=== PATIENT | female | born 2000 | race African-American/Black ===

== ENCOUNTER 2021-03-17 08:44 | Emergency (ER) | payer MEDICAID ==
[~2021-03-17] VITALS: Ht 167.6 cm; Wt 80.0 kg
[~2021-03-17 08:44] MED LIST: ASPI-785; GABAPENTIN
[2021-03-17] MEDS ORDERED: KETOROLAC 15MG/ML VIAL IV ONE (09:30)
[2021-03-17] MEDS ORDERED: MORPHINE SULFATE 4 MG/ML CPJ (NOT FOR IM USE) IV ONE ×3 (09:30→14:15)
[2021-03-17 09:52] LABS: BASOPHILS % 0.8 % (0.0-2.0); EOSINOPHILS % 1.3 % (0.0-5.0); HEMATOCRIT. 22.8 % (36.0-48.0); LYMPHOCYTES % 23.5 % (20.0-50.0); MEAN CORPUSCULAR HEMOGLOBIN 26.7 pg (28.0-32.0); MEAN CORPUSCULAR VOLUME 75.7 fL (81.0-99.0); MEAN PLATELET VOLUME 8.6 fl (7.4-10.4); MONOCYTES % 8.5 % (2.0-8.0); NEUTROPHILS % 65.9 % (40.0-76.0); PLATELET 403 x1000/uL (130-400); RED BLOOD CELL COUNT 3.01 mill/uL (4.2-5.4); RED CELL DISTRIBUTION WIDTH 19.4 % (11.6-14.6)
[2021-03-17 09:55] LABS: CHLORIDE 110 mEq/L (98-107)
[2021-03-17] MEDS ORDERED: MORPHINE SULFATE 2 MG/ML CPJ (NOT FOR IM USE) IV NR (15:00)
[2021-03-17 15:31] LABS: INR 1.1; PROTHROMBIN TIME 11.9 sec (9.6-11.0)
[2021-03-17 16:00] VITALS: BP 126/67
== END 2021-03-17 17:00 | disposition short-term general hospital (02) ==
LOC: ER 08:44
DX: D57.09 Hb-SS disease with crisis with other specified complication (principal); M79.18 Myalgia, other site; R07.89 Other chest pain; R11.2 Nausea with vomiting, unspecified; Z20.822 Contact with and (suspected) exposure to COVID-19
CPT/HCPCS: 36415; 71045; 80053; 83690; 84484; 85025; 85044; 85610; 85660; 86850; 86900; 86901; 87426; 93005; 96374; 96375; 96376; 99285; J1885; J2270

== ENCOUNTER 2021-04-22 07:54 | Inpatient (IN) | payer MEDICAID ==
[~2021-04-22] VITALS: Ht 167.6 cm; Wt 79.8 kg
[2021-04-22] MEDS ORDERED: SODIUM CHLORIDE 0.9% 1000ML BAG (SEPSIS BOLUS) IV ONE (10:30)
[2021-04-22 11:06] LABS: CHLORIDE 107 mEq/L (98-107)
[2021-04-22 11:07] LABS: BASOPHILS % 0.5 % (0.0-2.0); EOSINOPHILS % 1.2 % (0.0-5.0); HEMATOCRIT. 25.6 % (36.0-48.0); HEMOGLOBIN. 8.5 g/dL (12.0-16.0); LYMPHOCYTES % 16.3 % (20.0-50.0); MEAN CORPUSCULAR HEMOGLOBIN 24.9 pg (28.0-32.0); MEAN CORPUSCULAR VOLUME 74.7 fL (81.0-99.0); MEAN PLATELET VOLUME 8.1 fl (7.4-10.4); MONOCYTES % 9.6 % (2.0-8.0); NEUTROPHILS % 72.4 % (40.0-76.0); PLATELET 352 x1000/uL (130-400); RED BLOOD CELL COUNT 3.43 mill/uL (4.2-5.4); RED CELL DISTRIBUTION WIDTH 18.8 % (11.6-14.6)
[2021-04-22 11:10] LABS: ETHANOL BLOOD < 10 mg/dL; HCG SCREEN NEGATIVE; INR 1.1; PROTHROMBIN TIME 11.6 sec (9.6-11.0)
[2021-04-22 11:14] LABS: CREATINE KINASE 59 IU/L (26-192)
[2021-04-22] MEDS ORDERED: KETOROLAC 15MG/ML VIAL IV NR (11:30)
[2021-04-22] MEDS ORDERED: MORPHINE SULFATE 2 MG/ML CPJ (NOT FOR IM USE) IV NR (11:30)
[2021-04-22] MEDS ORDERED: MORPHINE SULFATE 2 MG/ML CPJ (NOT FOR IM USE) IV SCH (13:15)
[2021-04-22] MEDS ORDERED: MORPHINE SULFATE 4 MG/ML CPJ (NOT FOR IM USE) IV ONE (14:45)
[2021-04-22 18:48] LABS: CLARITY URINE CLEAR (CLEAR); COLOR URINE YELLOW (YELLOW); KETONES URINE NEGATIVE (NEGATIVE); LEUKOCYTE ESTERASE URINE NEGATIVE (NEGATIVE); NITRITE URINE NEGATIVE (NEGATIVE); OCCULT BLOOD URINE NEGATIVE (NEGATIVE); PROTEIN URINE NEGATIVE (NEGATIVE); SPECIFIC GRAVITY URINE 1.052 (1.005-1.030); UROBILINOGEN URINE 0.2 E.U./dL (0.2-1.0)
[2021-04-22 19:05] LABS: *AMPHETAMINES SCREEN URINE NEGATIVE (NEGATIVE); *BARBITURATES SCREEN URINE NEGATIVE (NEGATIVE); *BENZODIAZEPINES SCREEN URINE NEGATIVE (NEGATIVE); *COCAINE SCREEN URINE NEGATIVE (NEGATIVE); PHENCYCLIDINE URINE SCREEN NEGATIVE (NEGATIVE)
[2021-04-22 19:06] LABS: CANNABINOID URINE SCREEN NEGATIVE (NEGATIVE)
[2021-04-22 19:08] LABS: METHADONE URINE SCREEN NEGATIVE (NEGATIVE)
[2021-04-22 19:10] LABS: OPIATES URINE SCREEN PRESUMTIVE POSITIVE (NEGATIVE)
[2021-04-22 20:00] VITALS: BP 107/59
[2021-04-22] MEDS: SODIUM CHLORIDE 0.9% 1,000 ML IV SCH (20:47)
[2021-04-22] MEDS: MORPHINE SULFATE 2 MG/ML CPJ (NOT FOR IM USE) IV PRN (20:49)
[2021-04-22] MEDS: HYDROXYUREA 500MG CAPSULE PO SCH (21:21)
[2021-04-22 22:18] VITALS: BP 107/59
[2021-04-22] MEDS ORDERED: NALOXONE HCL 0.4MG/ML VIAL IV PRN (22:30)
[2021-04-23] VITALS: BP 110/61
[2021-04-23] MEDS: MORPHINE SULFATE 2 MG/ML CPJ (NOT FOR IM USE) IV PRN ×6 (00:42→23:25)
[2021-04-23 04:00] VITALS: BP 108/68
[2021-04-23 05:36] LABS: BASOPHILS % 0.7 % (0.0-2.0); EOSINOPHILS % 2.1 % (0.0-5.0); HEMATOCRIT. 22.4 % (36.0-48.0); HEMOGLOBIN. 7.5 g/dL (12.0-16.0); LYMPHOCYTES % 33.8 % (20.0-50.0); MEAN CORPUSCULAR VOLUME 77.6 fL (81.0-99.0); MEAN PLATELET VOLUME 8.6 fl (7.4-10.4); MONOCYTES % 9.5 % (2.0-8.0); NEUTROPHILS % 53.9 % (40.0-76.0); PLATELET 261 x1000/uL (130-400); RED BLOOD CELL COUNT 2.88 mill/uL (4.2-5.4); RED CELL DISTRIBUTION WIDTH 20.1 % (11.6-14.6)
[2021-04-23 05:54] LABS: CHLORIDE 112 mEq/L (98-107)
[2021-04-23] MEDS: SODIUM CHLORIDE 0.9% 1,000 ML IV SCH ×3 (06:06→23:23)
[2021-04-23 08:00] VITALS: BP 99/50
[2021-04-23] MEDS ORDERED: INFLUENZA VACCINE 05/PF 0.5 ML SYRINGE IM ONE (09:00)
[2021-04-23] MEDS ORDERED: PNEUMOCOCCAL 23-VAL P-SAC VAC 0.5 ML IM ONE (09:00)
[2021-04-23] MEDS: HYDROXYUREA 500MG CAPSULE PO SCH ×2 (09:04→16:53)
[2021-04-23] MEDS: HYDROCODONE/ACETAMINOPHEN 10/325MG TABLET PO PRN ×2 (09:05→16:53)
[2021-04-23] MEDS: FOLIC ACID 1MG TABLET PO SCH (09:05)
[2021-04-23] MEDS ORDERED: IOHEXOL-350 100 ML BOTTLE ONE (09:58)
[2021-04-23 12:00] VITALS: BP 109/59
[2021-04-23 16:30] VITALS: BP 110/61
[2021-04-23 20:00] VITALS: BP 102/60
[2021-04-24] VITALS (9 sets, daily range): BP systolic 104–112; BP diastolic 54–63
[2021-04-24] MEDS: MORPHINE SULFATE 2 MG/ML CPJ (NOT FOR IM USE) IV PRN ×4 (04:52→21:04)
[2021-04-24 06:07] LABS: BASOPHILS % 0.7 % (0.0-2.0); EOSINOPHILS % 2.8 % (0.0-5.0); HEMOGLOBIN. 7.3 g/dL (12.0-16.0); LYMPHOCYTES % 29.7 % (20.0-50.0); MEAN CORPUSCULAR HEMOGLOBIN 25.3 pg (28.0-32.0); MEAN CORPUSCULAR VOLUME 76.7 fL (81.0-99.0); MEAN PLATELET VOLUME 8.3 fl (7.4-10.4); MONOCYTES % 9.7 % (2.0-8.0); NEUTROPHILS % 57.1 % (40.0-76.0); PLATELET 305 x1000/uL (130-400); RED BLOOD CELL COUNT 2.87 mill/uL (4.2-5.4); RED CELL DISTRIBUTION WIDTH 18.9 % (11.6-14.6)
[2021-04-24 06:45] LABS: CHLORIDE 112 mEq/L (98-107)
[2021-04-24] MEDS: FOLIC ACID 1MG TABLET PO SCH (08:34)
[2021-04-24] MEDS: HYDROXYUREA 500MG CAPSULE PO SCH ×2 (08:34→18:37)
[2021-04-24] MEDS: HYDROCODONE/ACETAMINOPHEN 10/325MG TABLET PO PRN (08:34)
[2021-04-24] MEDS: SODIUM CHLORIDE 0.9% 1,000 ML IV SCH ×2 (11:17→21:05)
[2021-04-24 23:39] LABS: HEMATOCRIT 26.8 % (36.0-48.0); MEAN CORPUSCULAR HEMOGLOBIN 26.2 pg (28.0-32.0); MEAN CORPUSCULAR VOLUME 78.1 fL (81.0-99.0); PLATELET 261 x1000/uL (130-400); RED BLOOD CELL COUNT 3.43 mill/uL (4.2-5.4); RED CELL DISTRIBUTION WIDTH 18.6 % (11.6-14.6)
[2021-04-25 00:30] VITALS: BP 103/47
[2021-04-25] MEDS: HYDROCODONE/ACETAMINOPHEN 10/325MG TABLET PO PRN ×2 (01:11→08:06)
[2021-04-25 04:13] VITALS: BP 94/52
[2021-04-25 06:41] LABS: BASOPHILS % 1.4 % (0.0-2.0); EOSINOPHILS % 2.7 % (0.0-5.0); HEMATOCRIT. 25.2 % (36.0-48.0); HEMOGLOBIN. 8.5 g/dL (12.0-16.0); LYMPHOCYTES % 34.5 % (20.0-50.0); MEAN CORPUSCULAR HEMOGLOBIN 26.5 pg (28.0-32.0); MEAN CORPUSCULAR VOLUME 78.6 fL (81.0-99.0); MEAN PLATELET VOLUME 8.5 fl (7.4-10.4); MONOCYTES % 8.4 % (2.0-8.0); PLATELET 314 x1000/uL (130-400); RED CELL DISTRIBUTION WIDTH 18.3 % (11.6-14.6)
[2021-04-25 06:45] LABS: CHLORIDE 112 mEq/L (98-107)
[2021-04-25 08:00] VITALS: BP 93/48
[2021-04-25] MEDS: FOLIC ACID 1MG TABLET PO SCH (08:05)
[2021-04-25] MEDS: HYDROXYUREA 500MG CAPSULE PO SCH ×2 (08:06→17:00)
[2021-04-25 12:00] VITALS: BP 105/46
[2021-04-25] MEDS: MORPHINE SULFATE 2 MG/ML CPJ (NOT FOR IM USE) IV PRN ×2 (14:54→19:46)
[2021-04-25] MEDS: SODIUM CHLORIDE 0.9% 1,000 ML IV SCH ×2 (14:54→23:35)
[2021-04-25 16:00] VITALS: BP 107/47
[2021-04-25 20:00] VITALS: BP 114/65
[2021-04-25] MEDS ORDERED: ACETAMINOPHEN 325MG TABLET PO PRN (23:30)
[2021-04-26] VITALS: BP 94/42
[2021-04-26] MEDS: MORPHINE SULFATE 2 MG/ML CPJ (NOT FOR IM USE) IV PRN ×2 (01:10→08:31)
[2021-04-26 04:00] VITALS: BP 101/48
[2021-04-26] MEDS: HYDROCODONE/ACETAMINOPHEN 10/325MG TABLET PO PRN ×2 (04:29→12:43)
[2021-04-26 08:00] VITALS: BP 110/52
[2021-04-26] MEDS: FOLIC ACID 1MG TABLET PO SCH (08:30)
[2021-04-26] MEDS: HYDROXYUREA 500MG CAPSULE PO SCH (08:31)
[2021-04-26 09:32] LABS: BASOPHILS % 0.6 % (0.0-2.0); EOSINOPHILS % 3.7 % (0.0-5.0); HEMATOCRIT. 24.9 % (36.0-48.0); HEMOGLOBIN. 8.2 g/dL (12.0-16.0); LYMPHOCYTES % 31.9 % (20.0-50.0); MEAN CORPUSCULAR HEMOGLOBIN 25.9 pg (28.0-32.0); MEAN CORPUSCULAR VOLUME 78.3 fL (81.0-99.0); MEAN PLATELET VOLUME 8.9 fl (7.4-10.4); MONOCYTES % 8.3 % (2.0-8.0); NEUTROPHILS % 55.5 % (40.0-76.0); PLATELET 303 x1000/uL (130-400); RED BLOOD CELL COUNT 3.18 mill/uL (4.2-5.4); RED CELL DISTRIBUTION WIDTH 18.1 % (11.6-14.6)
[2021-04-26 09:39] LABS: CHLORIDE 110 mEq/L (98-107)
[2021-04-26 12:00] VITALS: BP 111/70
[2021-04-26] MEDS: SODIUM CHLORIDE 0.9% 1,000 ML IV SCH (12:27)
[2021-04-26] MEDS ORDERED: TRAM50TA3 MT (13:02)
[2021-04-26 14:03] VITALS: BP 111/70
== END 2021-04-26 14:50 | disposition home or self-care (01) | DRG 662 ==
LOC: ER 07:54 → 7EST 16:18 → EDBEDREQSVC 16:25 → EDBEDREQ 16:25 → ENRESERV 18:03
PROVIDERS: ADMIT Internal Medicine; ATTEND Internal Medicine
PROC: 30233N1 Transfusion of Nonautologous Red Blood Cells into Peripheral Vein, Percutaneous Approach (ICD-10-PCS; principal; 2021-04-24)
DX: D57.00 Hb-SS disease with crisis, unspecified (principal); R65.10 Systemic inflammatory response syndrome (SIRS) of non-infectious origin without acute organ dysfunction; R79.1 Abnormal coagulation profile; Z88.8 Allergy status to other drugs, medicaments and biological substances; Z79.82 Long term (current) use of aspirin; Z79.899 Other long term (current) drug therapy
CPT/HCPCS: 36415; 71045; 71275; 80048; 80053; 80305; 80320; 81003; 82550; 83605; 84145; 84484; 84703; 85025; 85027; 85044; 85379; 86850; 86900; 86920; 90686; 90732; 93005; 99285; C1893; J1885; J2270; J7030; J7040; P9016; Q9967; G0480

== ENCOUNTER 2021-05-24 07:46 | Inpatient (IN) | payer MEDICAID ==
[~2021-05-24] VITALS: Ht 167.6 cm; Wt 74.8 kg
[2021-05-24] MEDS ORDERED: KETOROLAC 30MG/ML VIAL IV STA (08:58)
[2021-05-24] MEDS ORDERED: ONDANSETRON 4MG ODT PO ONE (09:00)
[2021-05-24] MEDS ORDERED: SODIUM CHLORIDE 0.9% 1,000 ML IV ONE (09:00)
[2021-05-24] MEDS ORDERED: MORPHINE SULFATE 10 MG/ML CPJ IM ONE (09:00)
[2021-05-24 09:53] LABS: BASOPHILS % 0.5 % (0.0-2.0); EOSINOPHILS % 1.1 % (0.0-5.0); HEMATOCRIT. 23.2 % (36.0-48.0); HEMOGLOBIN. 7.7 g/dL (12.0-16.0); LYMPHOCYTES % 15.3 % (20.0-50.0); MEAN CORPUSCULAR HEMOGLOBIN 24.9 pg (28.0-32.0); MEAN CORPUSCULAR VOLUME 74.8 fL (81.0-99.0); MEAN PLATELET VOLUME 8.6 fl (7.4-10.4); MONOCYTES % 12.2 % (2.0-8.0); NEUTROPHILS % 70.9 % (40.0-76.0); PLATELET 295 x1000/uL (130-400); RED CELL DISTRIBUTION WIDTH 18.6 % (11.6-14.6)
[2021-05-24 09:57] LABS: CHLORIDE 111 mEq/L (98-107)
[2021-05-24 10:07] LABS: HCG SCREEN NEGATIVE
[2021-05-24 10:14] LABS: CLARITY URINE CLEAR (CLEAR); COLOR URINE YELLOW (YELLOW); KETONES URINE NEGATIVE (NEGATIVE); LEUKOCYTE ESTERASE URINE NEGATIVE (NEGATIVE); NITRITE URINE NEGATIVE (NEGATIVE); OCCULT BLOOD URINE TRACE (NEGATIVE); PH URINE 5.5 (4.5-8.0); PROTEIN URINE NEGATIVE (NEGATIVE); SPECIFIC GRAVITY URINE 1.013 (1.005-1.030)
[2021-05-24 10:30] LABS: CANNABINOID URINE SCREEN NEGATIVE (NEGATIVE); METHADONE URINE SCREEN NEGATIVE (NEGATIVE); OPIATES URINE SCREEN NEGATIVE (NEGATIVE)
[2021-05-24 10:31] LABS: *AMPHETAMINES SCREEN URINE NEGATIVE (NEGATIVE); PHENCYCLIDINE URINE SCREEN NEGATIVE (NEGATIVE)
[2021-05-24 10:33] LABS: *BARBITURATES SCREEN URINE NEGATIVE (NEGATIVE)
[2021-05-24 10:34] LABS: *BENZODIAZEPINES SCREEN URINE NEGATIVE (NEGATIVE); *COCAINE SCREEN URINE NEGATIVE (NEGATIVE)
[2021-05-24] MEDS ORDERED: ASPIRIN 81MG TABLET PO ONE (11:15)
[2021-05-24] MEDS ORDERED: DIPHENHYDRAMINE 50MG/ML VIAL IV PRN (12:00)
[2021-05-24] MEDS ORDERED: ONDANSETRON HCL 4MG/2ML INJ IV PRN (12:00)
[2021-05-24] MEDS ORDERED: GUAIFENESIN 200MG/10ML SUGAR FREE UDC PO PRN (12:00)
[2021-05-24] MEDS ORDERED: LORAZEPAM 2MG/ML CPJ IV PRN (12:00)
[2021-05-24] MEDS ORDERED: NA PHOS,M-B/NA PHOS,DI-BA ENEMA 118ML PR PRN (12:00)
[2021-05-24] MEDS ORDERED: CLONIDINE 0.1MG TABLET PO PRN (12:00)
[2021-05-24] MEDS ORDERED: ACETAMINOPHEN 325MG TABLET PO PRN (12:00)
[2021-05-24] MEDS ORDERED: IPRATROPIUM/ALBUTEROL 0.5-3(2.5)MG/3ML NEB NEB PRN (12:00)
[2021-05-24] MEDS ORDERED: MAGNESIUM/ALUMINUM HYDROXIDE/SIMETHICONE 30ML UDC PO PRN (12:00)
[2021-05-24] MEDS ORDERED: DOCUSATE SODIUM 100MG CAPSULE PO PRN (12:00)
[2021-05-24] MEDS ORDERED: NALOXONE HCL 0.4MG/ML VIAL IV PRN (12:15)
[2021-05-24] MEDS: SODIUM CHLORIDE 0.45% 1,000 ML IV SCH ×2 (12:26→19:53)
[2021-05-24] MEDS: HYDROCODONE/ACETAMINOPHEN 10/325MG TABLET PO PRN ×2 (13:02→18:22)
[2021-05-24 16:30] VITALS: BP 97/53
[2021-05-24 17:18] LABS: CHLORIDE 113 mEq/L (98-107)
[2021-05-24 17:26] VITALS: BP 97/53
[2021-05-24] MEDS ORDERED: FOLI0.4T6 MT (17:44)
[2021-05-24] MEDS ORDERED: HYDR500C18 PO (17:44)
[2021-05-24] MEDS ORDERED: VITA400T9 MT (17:44)
[2021-05-24] MEDS ORDERED: CHOL400D7 PO (17:44)
[2021-05-24 19:49] VITALS: BP 105/65
[2021-05-24] MEDS: MORPHINE SULFATE 2 MG/ML CPJ (NOT FOR IM USE) IV PRN ×2 (19:52→23:59)
[2021-05-24 23:54] VITALS: BP 105/60
[2021-05-25] VITALS (10 sets, daily range): BP systolic 103–116; BP diastolic 54–76
[2021-05-25] MEDS: SODIUM CHLORIDE 0.45% 1,000 ML IV SCH ×3 (03:18→21:03)
[2021-05-25] MEDS: MORPHINE SULFATE 2 MG/ML CPJ (NOT FOR IM USE) IV PRN ×4 (04:00→17:17)
[2021-05-25 07:34] LABS: CHLORIDE 111 mEq/L (98-107)
[2021-05-25 07:39] LABS: BASOPHILS % 0.6 % (0.0-2.0); EOSINOPHILS % 2.4 % (0.0-5.0); MEAN CORPUSCULAR VOLUME 75.1 fL (81.0-99.0); MEAN PLATELET VOLUME 9.1 fl (7.4-10.4); MONOCYTES % 9.6 % (2.0-8.0); NEUTROPHILS % 58.4 % (40.0-76.0); PLATELET 244 x1000/uL (130-400); RED BLOOD CELL COUNT 2.61 mill/uL (4.2-5.4); RED CELL DISTRIBUTION WIDTH 18.7 % (11.6-14.6)
[2021-05-25 07:42] LABS: LDL CHOLESTEROL 55 mg/dL (5-100)
[2021-05-25 07:44] LABS: HDL CHOLESTEROL 27 mg/dL (40-59)
[2021-05-25 07:51] LABS: HEMATOCRIT. 19.6 % (36.0-48.0); HEMOGLOBIN. 6.8 g/dL (12.0-16.0)
[2021-05-25 20:28] LABS: HEMATOCRIT 23.2 % (36.0-48.0)
[2021-05-25] MEDS ORDERED: MORPHINE SULFATE 2 MG/ML CPJ (NOT FOR IM USE) IV PRN (20:45)
[2021-05-25] MEDS: HYDROCODONE/ACETAMINOPHEN 10/325MG TABLET PO PRN (23:20)
[2021-05-26] MEDS: MORPHINE SULFATE 2 MG/ML CPJ (NOT FOR IM USE) IV PRN ×2 (01:38→05:17)
[2021-05-26] MEDS: HYDROCODONE/ACETAMINOPHEN 10/325MG TABLET PO PRN ×2 (03:05→08:48)
[2021-05-26] MEDS: SODIUM CHLORIDE 0.45% 1,000 ML IV SCH (05:00)
[2021-05-26 05:18] VITALS: BP 115/80
[2021-05-26 08:00] VITALS: BP 122/79
[2021-05-26 08:45] LABS: BASOPHILS % 0.7 % (0.0-2.0); EOSINOPHILS % 3.7 % (0.0-5.0); HEMATOCRIT. 24.6 % (36.0-48.0); HEMOGLOBIN. 8.3 g/dL (12.0-16.0); LYMPHOCYTES % 18.2 % (20.0-50.0); MEAN PLATELET VOLUME 8.4 fl (7.4-10.4); MONOCYTES % 10.1 % (2.0-8.0); NEUTROPHILS % 67.3 % (40.0-76.0); PLATELET 258 x1000/uL (130-400); RED BLOOD CELL COUNT 3.19 mill/uL (4.2-5.4); RED CELL DISTRIBUTION WIDTH 20.7 % (11.6-14.6)
[2021-05-26 08:57] LABS: CHLORIDE 109 mEq/L (98-107)
[2021-05-26 11:54] VITALS: BP 122/79
[2021-06-07] MEDS ORDERED: SENN1TAB35 PO (11:23)
[2021-06-07] MEDS ORDERED: POLY17PO3 PO (11:23)
[2021-06-07] MEDS ORDERED: HYDR-4001 PO (14:39)
== END 2021-05-26 12:50 | disposition home or self-care (01) | DRG 662 ==
LOC: ER 07:46 → EDBEDREQTM 10:15 → EDBEDREQ 10:15 → 8WST 11:27 → EDBEDREQTM 11:31 → EDBEDREQ 11:31 → ENRESERV 14:24
PROVIDERS: ADMIT Internal Medicine; ATTEND Internal Medicine
PROC: 05HY33Z Insertion of Infusion Device into Upper Vein, Percutaneous Approach (ICD-10-PCS; principal; 2021-05-24)
PROC: B54MZZA Ultrasonography of Right Upper Extremity Veins, Guidance (ICD-10-PCS; 2021-05-24)
PROC: 30233N1 Transfusion of Nonautologous Red Blood Cells into Peripheral Vein, Percutaneous Approach (ICD-10-PCS; 2021-05-25)
DX: D57.00 Hb-SS disease with crisis, unspecified (principal); R65.10 Systemic inflammatory response syndrome (SIRS) of non-infectious origin without acute organ dysfunction; E86.0 Dehydration; Z88.8 Allergy status to other drugs, medicaments and biological substances; Z79.82 Long term (current) use of aspirin; Z79.899 Other long term (current) drug therapy
CPT/HCPCS: 36415; 71045; 76937; 80048; 80053; 80061; 80305; 81003; 83880; 84484; 84703; 85014; 85018; 85025; 85044; 86850; 86900; 86920; 93005; 99291; C1725; J1885; J2270; J7030; J7040; P9016; Q0162

== ENCOUNTER 2021-06-04 11:25 | Inpatient (IN) | payer MEDICAID ==
[~2021-06-04] VITALS: Ht 167.6 cm; Wt 73.5 kg
[~2021-06-04 11:25] MED LIST changes: -ASPI-785; +CHOL400D7 PO; +FOLI0.4T6 MT; -GABAPENTIN; +HYDR500C18 PO; +VITA400T9 MT
[2021-06-04] MEDS ORDERED: SODIUM CHLORIDE 0.9% 1,000 ML IV ONE (12:15)
[2021-06-04] MEDS ORDERED: MORPHINE SULFATE 4 MG/ML CPJ (NOT FOR IM USE) IV ONE ×2 (12:45→15:30)
[2021-06-04] MEDS ORDERED: KETOROLAC 15MG/ML VIAL IV ONE (12:45)
[2021-06-04 13:11] LABS: HEMATOCRIT. 23.5 % (36.0-48.0); HEMOGLOBIN. 7.8 g/dL (12.0-16.0); MEAN CORPUSCULAR HEMOGLOBIN 25.4 pg (28.0-32.0); MEAN PLATELET VOLUME 8.5 fl (7.4-10.4); PLATELET 398 x1000/uL (130-400); RED BLOOD CELL COUNT 3.09 mill/uL (4.2-5.4); RED CELL DISTRIBUTION WIDTH 18.5 % (11.6-14.6)
[2021-06-04] MEDS: KETOROLAC 30MG/ML VIAL IV NR ×2 (13:13→15:32)
[2021-06-04 13:17] LABS: CHLORIDE 109 mEq/L (98-107)
[2021-06-04 13:24] LABS: ETHANOL BLOOD < 10 mg/dL
[2021-06-04 13:53] LABS: PLATELET ESTIMATE NORMAL
[2021-06-04] MEDS ORDERED: ACETAMINOPHEN 325MG TABLET PO PRN ×2 (17:45)
[2021-06-04] MEDS ORDERED: MORPHINE SULFATE 2 MG/ML CPJ (NOT FOR IM USE) IV PRN (17:45)
[2021-06-04] MEDS ORDERED: MAGNESIUM/ALUMINUM HYDROXIDE/SIMETHICONE 30ML UDC PO PRN (17:45)
[2021-06-04] MEDS: HYDROCODONE/ACETAMINOPHEN 5/325MG TABLET PO PRN (18:12)
[2021-06-04] MEDS: ONDANSETRON HCL 4MG/2ML INJ IV PRN (18:13)
[2021-06-04] MEDS: SODIUM CHLORIDE 0.9% 1,000 ML IV SCH (18:23)
[2021-06-04 19:26] LABS: CLARITY URINE CLEAR (CLEAR); COLOR URINE YELLOW (YELLOW); KETONES URINE NEGATIVE (NEGATIVE); LEUKOCYTE ESTERASE URINE NEGATIVE (NEGATIVE); NITRITE URINE NEGATIVE (NEGATIVE); OCCULT BLOOD URINE NEGATIVE (NEGATIVE); PH URINE 5.5 (4.5-8.0); PROTEIN URINE NEGATIVE (NEGATIVE); SPECIFIC GRAVITY URINE 1.015 (1.005-1.030)
[2021-06-04 19:46] LABS: BASOPHILS % 0.9 % (0.0-2.0); EOSINOPHILS % 1.6 % (0.0-5.0); HEMATOCRIT. 21.8 % (36.0-48.0); HEMOGLOBIN. 7.2 g/dL (12.0-16.0); LYMPHOCYTES % 42.9 % (20.0-50.0); MEAN CORPUSCULAR HEMOGLOBIN 25.2 pg (28.0-32.0); MEAN CORPUSCULAR VOLUME 76.4 fL (81.0-99.0); MEAN PLATELET VOLUME 8.4 fl (7.4-10.4); MONOCYTES % 7.9 % (2.0-8.0); NEUTROPHILS % 46.7 % (40.0-76.0); PLATELET 355 x1000/uL (130-400); RED BLOOD CELL COUNT 2.86 mill/uL (4.2-5.4); RED CELL DISTRIBUTION WIDTH 18.9 % (11.6-14.6)
[2021-06-04] MEDS: MORPHINE SULFATE 2 MG/ML CPJ (NOT FOR IM USE) IV PRN ×2 (20:35→23:17)
[2021-06-04] MEDS: ENOXAPARIN 40MG/0.4ML SYR SUBCUT SCH (21:15)
[2021-06-04] MEDS: SENNOSIDES/DOCUSATE SOD 8.6/50MG TABLET PO SCH (21:15)
[2021-06-04 23:52] LABS: BASOPHILS % 0.7 % (0.0-2.0); EOSINOPHILS % 1.8 % (0.0-5.0); HEMATOCRIT. 23.7 % (36.0-48.0); MEAN CORPUSCULAR HEMOGLOBIN 26.2 pg (28.0-32.0); MEAN CORPUSCULAR VOLUME 77.7 fL (81.0-99.0); MEAN PLATELET VOLUME 8.2 fl (7.4-10.4); MONOCYTES % 8.7 % (2.0-8.0); NEUTROPHILS % 41.8 % (40.0-76.0); PLATELET 351 x1000/uL (130-400); RED BLOOD CELL COUNT 3.05 mill/uL (4.2-5.4); RED CELL DISTRIBUTION WIDTH 19.7 % (11.6-14.6)
[2021-06-05] VITALS (9 sets, daily range): BP systolic 94–120; BP diastolic 48–73
[2021-06-05 00:05] LABS: INR 1.2; PROTHROMBIN TIME 12.3 sec (9.6-11.0)
[2021-06-05] MEDS: SODIUM CHLORIDE 0.9% 1,000 ML IV SCH ×5 (00:33→21:26)
[2021-06-05] MEDS: MORPHINE SULFATE 2 MG/ML CPJ (NOT FOR IM USE) IV PRN ×6 (01:57→20:34)
[2021-06-05 04:51] LABS: CHLORIDE 115 mEq/L (98-107)
[2021-06-05 04:53] LABS: BASOPHILS % 0.8 % (0.0-2.0); EOSINOPHILS % 1.8 % (0.0-5.0); HEMATOCRIT. 23.1 % (36.0-48.0); HEMOGLOBIN. 7.8 g/dL (12.0-16.0); MEAN CORPUSCULAR HEMOGLOBIN 26.3 pg (28.0-32.0); MEAN CORPUSCULAR VOLUME 77.8 fL (81.0-99.0); MEAN PLATELET VOLUME 8.4 fl (7.4-10.4); MONOCYTES % 8.9 % (2.0-8.0); NEUTROPHILS % 49.5 % (40.0-76.0); PLATELET 322 x1000/uL (130-400); RED BLOOD CELL COUNT 2.97 mill/uL (4.2-5.4); RED CELL DISTRIBUTION WIDTH 19.4 % (11.6-14.6)
[2021-06-05 04:56] LABS: PHOSPHORUS 3.5 mg/dL (2.5-4.9)
[2021-06-05] MEDS: HYDROCODONE/ACETAMINOPHEN 5/325MG TABLET PO PRN (06:53)
[2021-06-05] MEDS ORDERED: POLYETHYLENE GLYCOL 3350 (17GM) 1 DOSE PACK PO PRN (09:00)
[2021-06-05] MEDS: HYDROXYUREA 500MG CAPSULE PO SCH (09:00)
[2021-06-05] MEDS: SENNOSIDES/DOCUSATE SOD 8.6/50MG TABLET PO SCH ×2 (09:43→17:46)
[2021-06-05] MEDS ORDERED: POTASSIUM CHLORIDE 20MEQ TABLET SR PO NR (13:30)
[2021-06-05] MEDS: ONDANSETRON HCL 4MG/2ML INJ IV PRN (14:15)
[2021-06-05] MEDS ORDERED: FLUOXETINE HCL 10 MG CAPSULE PO SCH (14:30)
[2021-06-05] MEDS: ENOXAPARIN 40MG/0.4ML SYR SUBCUT SCH (20:33)
[2021-06-05] MEDS ORDERED: OLANZAPINE 10MG TABLET PO SCH (21:00)
[2021-06-05 21:45] LABS: HEMATOCRIT 26.7 % (36.0-48.0); HEMOGLOBIN 9.1 g/dL (12.0-16.0)
[2021-06-06] VITALS: BP 108/76
[2021-06-06] MEDS: SODIUM CHLORIDE 0.9% 1,000 ML IV SCH ×3 (02:19→16:10)
[2021-06-06] MEDS: ONDANSETRON HCL 4MG/2ML INJ IV PRN (03:11)
[2021-06-06] MEDS: MORPHINE SULFATE 2 MG/ML CPJ (NOT FOR IM USE) IV PRN ×3 (03:11→19:54)
[2021-06-06 04:00] VITALS: BP_SYST 104; BP_SYST 112; BP_DIAS 44; BP_DIAS 65
[2021-06-06 07:34] LABS: BASOPHILS % 0.7 % (0.0-2.0); EOSINOPHILS % 2.1 % (0.0-5.0); HEMATOCRIT. 26.9 % (36.0-48.0); HEMOGLOBIN. 9.4 g/dL (12.0-16.0); LYMPHOCYTES % 20.7 % (20.0-50.0); MEAN CORPUSCULAR HEMOGLOBIN 26.9 pg (28.0-32.0); MEAN CORPUSCULAR VOLUME 77.5 fL (81.0-99.0); MEAN PLATELET VOLUME 8.5 fl (7.4-10.4); MONOCYTES % 9.1 % (2.0-8.0); NEUTROPHILS % 67.4 % (40.0-76.0); PLATELET 322 x1000/uL (130-400); RED BLOOD CELL COUNT 3.48 mill/uL (4.2-5.4); RED CELL DISTRIBUTION WIDTH 19.6 % (11.6-14.6)
[2021-06-06 07:56] LABS: CHLORIDE 109 mEq/L (98-107)
[2021-06-06] MEDS: SENNOSIDES/DOCUSATE SOD 8.6/50MG TABLET PO SCH ×2 (09:44→16:10)
[2021-06-06] MEDS: HYDROCODONE/ACETAMINOPHEN 5/325MG TABLET PO PRN (09:44)
[2021-06-06 12:00] VITALS: BP 103/57
[2021-06-06] MEDS: HYDROXYUREA 500MG CAPSULE PO SCH (12:13)
[2021-06-06 16:00] VITALS: BP 103/57
[2021-06-06] MEDS ORDERED: NALOXONE HCL 0.4MG/ML VIAL IV PRN (16:15)
[2021-06-06] MEDS: HYDROCODONE/ACETAMINOPHEN 10/325MG TABLET PO PRN (16:20)
[2021-06-06 20:00] VITALS: BP 112/66
[2021-06-06] MEDS: ENOXAPARIN 40MG/0.4ML SYR SUBCUT SCH (20:39)
[2021-06-07] VITALS: BP 109/50
[2021-06-07] MEDS: MORPHINE SULFATE 2 MG/ML CPJ (NOT FOR IM USE) IV PRN ×2 (01:11→04:42)
[2021-06-07] MEDS: SODIUM CHLORIDE 0.9% 1,000 ML IV SCH ×2 (01:12→06:24)
[2021-06-07 04:00] VITALS: BP 98/50
[2021-06-07] MEDS: HYDROCODONE/ACETAMINOPHEN 10/325MG TABLET PO PRN ×2 (06:23→14:46)
[2021-06-07 08:00] VITALS: BP 111/47
[2021-06-07] MEDS: HYDROCODONE/ACETAMINOPHEN 5/325MG TABLET PO PRN (08:48)
[2021-06-07] MEDS: SENNOSIDES/DOCUSATE SOD 8.6/50MG TABLET PO SCH (08:48)
[2021-06-07 09:05] LABS: BASOPHILS % 0.5 % (0.0-2.0); EOSINOPHILS % 2.8 % (0.0-5.0); HEMATOCRIT. 25.7 % (36.0-48.0); HEMOGLOBIN. 8.9 g/dL (12.0-16.0); LYMPHOCYTES % 29.9 % (20.0-50.0); MEAN CORPUSCULAR HEMOGLOBIN 26.7 pg (28.0-32.0); MEAN CORPUSCULAR VOLUME 77.4 fL (81.0-99.0); MEAN PLATELET VOLUME 8.4 fl (7.4-10.4); MONOCYTES % 7.9 % (2.0-8.0); NEUTROPHILS % 58.9 % (40.0-76.0); PLATELET 329 x1000/uL (130-400); RED BLOOD CELL COUNT 3.32 mill/uL (4.2-5.4); RED CELL DISTRIBUTION WIDTH 20.1 % (11.6-14.6)
[2021-06-07 09:15] LABS: CHLORIDE 111 mEq/L (98-107)
[2021-06-07] MEDS: HYDROXYUREA 500MG CAPSULE PO SCH (10:16)
[2021-06-07] MEDS ORDERED: POLY17PO3 PO (11:23)
[2021-06-07] MEDS ORDERED: SENN1TAB35 PO (11:23)
[2021-06-07 11:49] VITALS: BP 111/47
[2021-06-07 12:00] VITALS: BP 114/79
[2021-06-07] MEDS ORDERED: HYDR-4001 PO (14:39)
[2021-06-07 16:00] VITALS: BP 117/67
== END 2021-06-07 16:38 | disposition home or self-care (01) | DRG 662 ==
LOC: ER 11:39 → 6EST 17:00 → SUPCPDRO 17:24 → ENRESERV 06-05 08:38
PROVIDERS: ADMIT Internal Medicine; ATTEND Internal Medicine
PROC: 30233N1 Transfusion of Nonautologous Red Blood Cells into Peripheral Vein, Percutaneous Approach (ICD-10-PCS; principal; 2021-06-04)
DX: D57.00 Hb-SS disease with crisis, unspecified (principal); F50.2 Bulimia nervosa; F33.1 Major depressive disorder, recurrent, moderate; K59.03 Drug induced constipation; T40.2X5A Adverse effect of other opioids, initial encounter; F41.1 Generalized anxiety disorder; F60.3 Borderline personality disorder; Z68.26 Body mass index [BMI] 26.0-26.9, adult; Z86.59 Personal history of other mental and behavioral disorders; Z88.8 Allergy status to other drugs, medicaments and biological substances; Z88.6 Allergy status to analgesic agent; Z88.2 Allergy status to sulfonamides; Y92.89 Other specified places as the place of occurrence of the external cause
CPT/HCPCS: 36415; 71045; 80048; 80053; 80320; 81003; 83735; 84100; 85014; 85018; 85025; 85044; 85384; 86850; 86900; 86920; 93005; 99285; J1650; J1885; J2270; J2405; J7030; P9016; G0480

== ENCOUNTER 2021-06-21 16:31 | Emergency (ER) | payer MEDICAID ==
[~2021-06-21] VITALS: Ht 167.6 cm; Wt 77.0 kg
[~2021-06-21 16:31] MED LIST changes: +HYDR-4001 PO; +POLY17PO3 PO; +SENN1TAB35 PO
[2021-06-21] MEDS ORDERED: SODIUM CHLORIDE 0.9% 1,000 ML IV ONE (16:45)
[2021-06-21] MEDS ORDERED: KETOROLAC 30MG/ML VIAL IV STA (16:45)
[2021-06-21] MEDS ORDERED: METHYLPREDNISOLONE SOD SUCC 125 MG/2 ML VIAL IV ONE (16:45)
[2021-06-21] MEDS ORDERED: FAMOTIDINE 20MG/2ML VIAL IV ONE (16:45)
[2021-06-22] MEDS ORDERED: KETOROLAC 30MG/ML VIAL IV NR (01:30)
[2021-06-22] MEDS ORDERED: METHYLPREDNISOLONE SOD SUCC 125 MG/2 ML VIAL IV NR (01:30)
[2021-06-22] MEDS ORDERED: FAMOTIDINE 20MG/2ML VIAL IV NR (01:30)
[2021-06-22 01:31] LABS: BASOPHILS % 0.7 % (0.0-2.0); EOSINOPHILS % 1.9 % (0.0-5.0); HEMOGLOBIN. 8.5 g/dL (12.0-16.0); MEAN CORPUSCULAR HEMOGLOBIN 26.4 pg (28.0-32.0); MEAN CORPUSCULAR VOLUME 77.5 fL (81.0-99.0); MEAN PLATELET VOLUME 8.8 fl (7.4-10.4); MONOCYTES % 9.5 % (2.0-8.0); NEUTROPHILS % 61.9 % (40.0-76.0); PLATELET 309 x1000/uL (130-400); RED BLOOD CELL COUNT 3.22 mill/uL (4.2-5.4); RED CELL DISTRIBUTION WIDTH 19.7 % (11.6-14.6)
[2021-06-22 01:40] LABS: CHLORIDE 111 mEq/L (98-107)
[2021-06-22 01:47] LABS: HCG SCREEN NEGATIVE
[2021-06-22] MEDS ORDERED: MORPHINE SULFATE 4 MG/ML CPJ (NOT FOR IM USE) IV ONE (02:30)
[2021-06-22] MEDS ORDERED: HYDR-4001 MT (03:14)
[2021-06-22 04:00] VITALS: BP 118/84
== END 2021-06-22 04:48 | disposition home or self-care (01) ==
LOC: ER 16:31
DX: T78.1XXA Other adverse food reactions, not elsewhere classified, initial encounter (principal); D72.829 Elevated white blood cell count, unspecified; D57.819 Other sickle-cell disorders with crisis, unspecified; F41.9 Anxiety disorder, unspecified; F32.A Depression, unspecified; Z79.899 Other long term (current) drug therapy; Z88.8 Allergy status to other drugs, medicaments and biological substances; E86.0 Dehydration; X58.XXXA Exposure to other specified factors, initial encounter
CPT/HCPCS: 36415; 71045; 80053; 84703; 85025; 93005; 96361; 96374; 96375; 99285; J1885; J2270; J2930; J3490; J7030

== ENCOUNTER 2021-06-24 18:25 | Inpatient (IN) | payer MEDICAID ==
[~2021-06-24] VITALS: Ht 167.6 cm; Wt 84.5 kg
[~2021-06-24 18:25] MED LIST changes: +HYDR-4001 MT
[2021-06-24] MEDS ORDERED: MORPHINE SULFATE 4 MG/ML CPJ (NOT FOR IM USE) IV NR (21:15)
[2021-06-24] MEDS ORDERED: KETOROLAC 30MG/ML VIAL IV NR (21:15)
[2021-06-24] MEDS ORDERED: SODIUM CHLORIDE 0.9% 1,000 ML IV NR (21:15)
[2021-06-24 21:21] LABS: BASOPHILS % 0.7 % (0.0-2.0); EOSINOPHILS % 2.1 % (0.0-5.0); HEMATOCRIT. 25.2 % (36.0-48.0); HEMOGLOBIN. 8.6 g/dL (12.0-16.0); LYMPHOCYTES % 37.5 % (20.0-50.0); MEAN CORPUSCULAR HEMOGLOBIN 27.4 pg (28.0-32.0); MEAN CORPUSCULAR VOLUME 79.8 fL (81.0-99.0); MEAN PLATELET VOLUME 9.2 fl (7.4-10.4); MONOCYTES % 8.3 % (2.0-8.0); NEUTROPHILS % 51.4 % (40.0-76.0); PLATELET 286 x1000/uL (130-400); RED BLOOD CELL COUNT 3.16 mill/uL (4.2-5.4); RED CELL DISTRIBUTION WIDTH 20.4 % (11.6-14.6)
[2021-06-24 21:28] LABS: CHLORIDE 110 mEq/L (98-107)
[2021-06-25] MEDS ORDERED: ONDANSETRON HCL 4MG/2ML INJ IV ONE (00:15)
[2021-06-25] MEDS ORDERED: HYDROMORPHONE HCL/PF 2MG/ML CPJ IV ONE ×3 (00:15→01:45)
[2021-06-25] MEDS ORDERED: ONDANSETRON HCL 4MG/2ML INJ IV PRN (06:30)
[2021-06-25] MEDS: MORPHINE SULFATE 2 MG/ML CPJ (NOT FOR IM USE) IV PRN ×4 (06:41→22:12)
[2021-06-25 08:18] LABS: BASOPHILS % 0.8 % (0.0-2.0); HEMATOCRIT. 24.3 % (36.0-48.0); HEMOGLOBIN. 7.6 g/dL (12.0-16.0); LYMPHOCYTES % 35.5 % (20.0-50.0); MEAN CORPUSCULAR HEMOGLOBIN 25.7 pg (28.0-32.0); MEAN CORPUSCULAR VOLUME 82.1 fL (81.0-99.0); MEAN PLATELET VOLUME 8.9 fl (7.4-10.4); MONOCYTES % 8.1 % (2.0-8.0); NEUTROPHILS % 52.6 % (40.0-76.0); PLATELET 263 x1000/uL (130-400); RED BLOOD CELL COUNT 2.95 mill/uL (4.2-5.4); RED CELL DISTRIBUTION WIDTH 21.2 % (11.6-14.6)
[2021-06-25 08:21] LABS: CHLORIDE 113 mEq/L (98-107)
[2021-06-25] MEDS ORDERED: NALOXONE HCL 0.4MG/ML VIAL IV PRN ×2 (10:45)
[2021-06-25 11:00] VITALS: BP 96/41
[2021-06-25 12:00] VITALS: BP 90/40
[2021-06-25] MEDS: SODIUM CHLORIDE 0.9% 1,000 ML IV SCH (15:32)
[2021-06-25 16:00] VITALS: BP 85/53
[2021-06-25 20:00] VITALS: BP 87/50
[2021-06-26] VITALS: BP 96/54
[2021-06-26] MEDS: SODIUM CHLORIDE 0.9% 1,000 ML IV SCH ×2 (03:02→12:35)
[2021-06-26] MEDS: MORPHINE SULFATE 2 MG/ML CPJ (NOT FOR IM USE) IV PRN ×3 (03:03→19:34)
[2021-06-26 04:00] VITALS: BP 92/44
[2021-06-26 08:21] VITALS: BP 95/50
[2021-06-26 11:52] VITALS: BP 91/48
[2021-06-26 16:09] VITALS: BP 91/45
[2021-06-26] MEDS ORDERED: ACETAMINOPHEN 650MG/20.3ML UDC PO PRN (18:15)
[2021-06-26 18:16] LABS: BASOPHILS % 0.4 % (0.0-2.0); EOSINOPHILS % 2.8 % (0.0-5.0); HEMATOCRIT. 23.4 % (36.0-48.0); HEMOGLOBIN. 7.8 g/dL (12.0-16.0); LYMPHOCYTES % 29.4 % (20.0-50.0); MEAN CORPUSCULAR HEMOGLOBIN 26.7 pg (28.0-32.0); MEAN CORPUSCULAR VOLUME 79.4 fL (81.0-99.0); MEAN PLATELET VOLUME 9.5 fl (7.4-10.4); MONOCYTES % 7.4 % (2.0-8.0); PLATELET 230 x1000/uL (130-400); RED BLOOD CELL COUNT 2.94 mill/uL (4.2-5.4); RED CELL DISTRIBUTION WIDTH 20.2 % (11.6-14.6)
[2021-06-26 18:17] LABS: CHLORIDE 111 mEq/L (98-107)
[2021-06-26 18:20] LABS: INR 1.2; PROTHROMBIN TIME 12.5 sec (9.6-11.0)
[2021-06-26 20:00] VITALS: BP 108/63
[2021-06-26 20:08] LABS: CLARITY URINE CLEAR (CLEAR); COLOR URINE YELLOW (YELLOW); KETONES URINE NEGATIVE (NEGATIVE); LEUKOCYTE ESTERASE URINE NEGATIVE (NEGATIVE); NITRITE URINE NEGATIVE (NEGATIVE); OCCULT BLOOD URINE NEGATIVE (NEGATIVE); PROTEIN URINE NEGATIVE (NEGATIVE); SPECIFIC GRAVITY URINE 1.009 (1.005-1.030)
[2021-06-26 20:16] LABS: *AMPHETAMINES SCREEN URINE NEGATIVE (NEGATIVE); *BARBITURATES SCREEN URINE NEGATIVE (NEGATIVE); *BENZODIAZEPINES SCREEN URINE NEGATIVE (NEGATIVE); *COCAINE SCREEN URINE NEGATIVE (NEGATIVE)
[2021-06-26 20:17] LABS: CANNABINOID URINE SCREEN NEGATIVE (NEGATIVE); METHADONE URINE SCREEN NEGATIVE (NEGATIVE); PHENCYCLIDINE URINE SCREEN NEGATIVE (NEGATIVE)
[2021-06-26 20:30] LABS: OPIATES URINE SCREEN PRESUMTIVE POSITIVE (NEGATIVE)
[2021-06-27] VITALS (7 sets, daily range): BP systolic 91–118; BP diastolic 30–76
[2021-06-27] MEDS: MORPHINE SULFATE 2 MG/ML CPJ (NOT FOR IM USE) IV PRN ×5 (00:50→21:52)
[2021-06-27] MEDS: SODIUM CHLORIDE 0.9% 1,000 ML IV SCH ×4 (04:45→19:40)
[2021-06-27] MEDS: FOLIC ACID 1MG TABLET PO SCH (09:06)
[2021-06-28] VITALS: BP 105/52
[2021-06-28] MEDS: MORPHINE SULFATE 2 MG/ML CPJ (NOT FOR IM USE) IV PRN ×2 (03:02→08:57)
[2021-06-28 04:00] VITALS: BP 92/45
[2021-06-28 08:00] VITALS: BP 103/57
[2021-06-28 08:57] VITALS: BP 103/57
[2021-06-28] MEDS: FOLIC ACID 1MG TABLET PO SCH (08:57)
[2021-06-28 13:18] LABS: BASOPHILS % 0.8 % (0.0-2.0); EOSINOPHILS % 3.8 % (0.0-5.0); HEMATOCRIT. 23.1 % (36.0-48.0); HEMOGLOBIN. 7.9 g/dL (12.0-16.0); LYMPHOCYTES % 20.7 % (20.0-50.0); MEAN CORPUSCULAR HEMOGLOBIN 26.9 pg (28.0-32.0); MEAN CORPUSCULAR VOLUME 78.6 fL (81.0-99.0); MONOCYTES % 8.3 % (2.0-8.0); NEUTROPHILS % 66.4 % (40.0-76.0); PLATELET 264 x1000/uL (130-400); RED BLOOD CELL COUNT 2.93 mill/uL (4.2-5.4); RED CELL DISTRIBUTION WIDTH 19.1 % (11.6-14.6)
[2021-06-28 13:25] LABS: CHLORIDE 112 mEq/L (98-107)
[2021-07-04 13:06] LABS: HGB A 36.9 % (96.4-98.8); HGB A2 3.6 % (1.8-3.2); HGB F 4.5 % (0.0-2.0); HGB F Reflexed % (0.0-2.0); HGB S Reflexed % (0.0)
== END 2021-06-28 17:00 | disposition home or self-care (01) | DRG 662 ==
LOC: ER 18:25 → MICUSO 06-25 01:22 → 6EST 06-25 10:33 → 8WST 06-25 17:13
PROVIDERS: ADMIT Family Medicine; ATTEND Family Medicine
DX: D57.00 Hb-SS disease with crisis, unspecified (principal); R65.10 Systemic inflammatory response syndrome (SIRS) of non-infectious origin without acute organ dysfunction; E55.9 Vitamin D deficiency, unspecified; R07.2 Precordial pain; E86.0 Dehydration; F41.9 Anxiety disorder, unspecified; Z80.0 Family history of malignant neoplasm of digestive organs; Z85.05 Personal history of malignant neoplasm of liver; Z88.8 Allergy status to other drugs, medicaments and biological substances; Z79.899 Other long term (current) drug therapy; Z79.891 Long term (current) use of opiate analgesic
CPT/HCPCS: 36415; 71045; 73521; 80053; 80305; 81003; 83021; 84484; 85025; 85044; 85660; 93005; 99285; C1893; J1170; J1885; J2270; J2405; J7030; J7040

== ENCOUNTER 2021-08-18 18:45 | Emergency (ER) | payer MEDICAID ==
[~2021-08-18] VITALS: Ht 167.6 cm; Wt 72.0 kg
[~2021-08-18 18:45] MED LIST changes: -HYDR-4001 MT; -HYDR-4001 PO
[2021-08-18] MEDS ORDERED: ONDANSETRON HCL 4MG/2ML INJ IV STA (23:56)
[2021-08-18] MEDS ORDERED: MORPHINE SULFATE 4 MG/ML CPJ (NOT FOR IM USE) IV STA (23:56)
[2021-08-19] MEDS ORDERED: SODIUM CHLORIDE 0.9% 1,000 ML IV ONE
[2021-08-19] MEDS ORDERED: MORPHINE SULFATE 4 MG/ML CPJ (NOT FOR IM USE) IV NR (05:00)
[2021-08-19] MEDS ORDERED: ONDANSETRON HCL 4MG/2ML INJ IV NR (05:00)
[2021-08-19 05:03] LABS: BASOPHILS % 0.7 % (0.0-2.0); EOSINOPHILS % 1.8 % (0.0-5.0); HEMATOCRIT. 24.4 % (36.0-48.0); HEMOGLOBIN. 8.2 g/dL (12.0-16.0); LYMPHOCYTES % 25.4 % (20.0-50.0); MEAN CORPUSCULAR HEMOGLOBIN 25.5 pg (28.0-32.0); MEAN CORPUSCULAR VOLUME 75.4 fL (81.0-99.0); MEAN PLATELET VOLUME 8.7 fl (7.4-10.4); MONOCYTES % 9.3 % (2.0-8.0); NEUTROPHILS % 62.8 % (40.0-76.0); PLATELET 306 x1000/uL (130-400); RED BLOOD CELL COUNT 3.24 mill/uL (4.2-5.4); RED CELL DISTRIBUTION WIDTH 17.9 % (11.6-14.6)
[2021-08-19 05:06] LABS: CHLORIDE 108 mEq/L (98-107)
[2021-08-19 05:17] LABS: HCG SCREEN NEGATIVE
[2021-08-19 05:25] VITALS: BP 119/58
[2021-08-19] MEDS ORDERED: HYDR-4001 MT (05:39)
== END 2021-08-19 05:25 | disposition home or self-care (01) ==
LOC: ER 18:45
DX: D57.01 Hb-SS disease with acute chest syndrome (principal)
CPT/HCPCS: 36415; 71045; 80053; 81025; 84703; 85025; 85044; 93005; 96374; 96375; 99285; J2270; J2405; J7030

== ENCOUNTER 2021-08-24 21:32 | Inpatient (IN) | payer MEDICAID ==
[~2021-08-24] VITALS: Ht 185.4 cm; Wt 73.0 kg
[~2021-08-24 21:32] MED LIST changes: +HYDR-4001 MT
[2021-08-25] MEDS ORDERED: MORPHINE SULFATE 4 MG/ML CPJ (NOT FOR IM USE) IV ONE
[2021-08-25] MEDS ORDERED: SODIUM CHLORIDE 0.9% 1,000 ML IV ONE
[2021-08-25 00:54] LABS: HEMATOCRIT 23.3 % (36.0-48.0); HEMOGLOBIN 7.9 g/dL (12.0-16.0); MEAN CORPUSCULAR HEMOGLOBIN 25.7 pg (28.0-32.0); MEAN CORPUSCULAR VOLUME 75.7 fL (81.0-99.0); PLATELET 294 x1000/uL (130-400); RED BLOOD CELL COUNT 3.08 mill/uL (4.2-5.4); RED CELL DISTRIBUTION WIDTH 18.5 % (11.6-14.6)
[2021-08-25 01:00] LABS: CHLORIDE 107 mEq/L (98-107)
[2021-08-25] MEDS ORDERED: ONDANSETRON HCL 4MG/2ML INJ IV ONE (01:00)
[2021-08-25] MEDS ORDERED: MORPHINE SULFATE 4 MG/ML CPJ (NOT FOR IM USE) IV SCH (01:45)
[2021-08-25 02:07] LABS: CLARITY URINE CLEAR (CLEAR); COLOR URINE YELLOW (YELLOW); KETONES URINE NEGATIVE (NEGATIVE); LEUKOCYTE ESTERASE URINE NEGATIVE (NEGATIVE); NITRITE URINE NEGATIVE (NEGATIVE); OCCULT BLOOD URINE 2+ (NEGATIVE); PROTEIN URINE NEGATIVE (NEGATIVE)
[2021-08-25] MEDS ORDERED: HYDROMORPHONE HCL/PF 2MG/ML CPJ IV ONE (04:30)
[2021-08-25] MEDS ORDERED: NITROGLYCERIN 0.4MG TABLET SL SL PRN (06:45)
[2021-08-25] MEDS ORDERED: IPRATROPIUM/ALBUTEROL 0.5-3(2.5)MG/3ML NEB NEB PRN (06:45)
[2021-08-25] MEDS ORDERED: LORAZEPAM 0.5MG TABLET PO PRN (06:45)
[2021-08-25] MEDS ORDERED: GUAIFENESIN 200MG/10ML SUGAR FREE UDC PO PRN (06:45)
[2021-08-25] MEDS ORDERED: ONDANSETRON HCL 4MG/2ML INJ IV PRN (06:45)
[2021-08-25] MEDS ORDERED: CLONIDINE 0.1MG TABLET PO PRN (06:45)
[2021-08-25] MEDS ORDERED: ACETAMINOPHEN 325MG TABLET PO PRN ×2 (06:45)
[2021-08-25] MEDS ORDERED: MAGNESIUM/ALUMINUM HYDROXIDE/SIMETHICONE 30ML UDC PO PRN (06:45)
[2021-08-25] MEDS: SODIUM CHLORIDE 0.9% 1,000 ML IV SCH ×3 (07:05→20:05)
[2021-08-25 07:42] LABS: TOTAL IRON BINDING CAPACITY 180 ug/dL (250-450)
[2021-08-25] MEDS ORDERED: NALOXONE HCL 0.4MG/ML VIAL IV PRN (08:00)
[2021-08-25] MEDS: FAMOTIDINE 20MG TABLET PO SCH (09:00)
[2021-08-25 10:00] VITALS: BP 101/57
[2021-08-25 12:00] VITALS: BP 108/65
[2021-08-25 12:10] LABS: FOLIC ACID (FOLATE) SERUM 12.4 ng/mL (>5.38)
[2021-08-25] MEDS: MORPHINE SULFATE 2 MG/ML CPJ (NOT FOR IM USE) IV PRN ×2 (12:12→19:07)
[2021-08-25 16:29] VITALS: BP_SYST 101; BP_SYST 99; BP_DIAS 57; BP_DIAS 60
[2021-08-25] MEDS: KETOROLAC 15MG/ML VIAL IV PRN (16:39)
[2021-08-25 17:39] LABS: CREATINE KINASE 76 IU/L (26-192)
[2021-08-25 17:41] LABS: CREATINE KINASE MB FRACTION 1.1 ng/mL (0.5-3.6)
[2021-08-25] MEDS ORDERED: HYDR500C18 PO (19:39)
[2021-08-25 20:00] VITALS: BP 98/45
[2021-08-25] MEDS ORDERED: ZOLPIDEM TARTRATE 5MG TABLET PO PRN (21:00)
[2021-08-26] VITALS: BP 103/60
[2021-08-26] MEDS: MORPHINE SULFATE 2 MG/ML CPJ (NOT FOR IM USE) IV PRN ×4 (00:01→18:32)
[2021-08-26] MEDS: FAMOTIDINE 20MG TABLET PO SCH ×3 (00:02→21:11)
[2021-08-26] MEDS: SODIUM CHLORIDE 0.9% 1,000 ML IV SCH ×4 (02:45→22:45)
[2021-08-26 04:00] VITALS: BP 109/76
[2021-08-26 08:00] VITALS: BP 114/74
[2021-08-26] MEDS: FOLIC ACID 1MG TABLET PO SCH (09:18)
[2021-08-26 09:47] LABS: BASOPHILS % 0.9 % (0.0-2.0); EOSINOPHILS % 3.2 % (0.0-5.0); HEMATOCRIT. 23.2 % (36.0-48.0); HEMOGLOBIN. 7.9 g/dL (12.0-16.0); LYMPHOCYTES % 23.1 % (20.0-50.0); MEAN CORPUSCULAR HEMOGLOBIN 25.2 pg (28.0-32.0); MEAN CORPUSCULAR VOLUME 73.8 fL (81.0-99.0); MEAN PLATELET VOLUME 9.3 fl (7.4-10.4); MONOCYTES % 8.1 % (2.0-8.0); NEUTROPHILS % 64.7 % (40.0-76.0); PLATELET 242 x1000/uL (130-400); RED BLOOD CELL COUNT 3.15 mill/uL (4.2-5.4); RED CELL DISTRIBUTION WIDTH 18.6 % (11.6-14.6)
[2021-08-26 10:32] LABS: CHLORIDE 110 mEq/L (98-107)
[2021-08-26 10:42] LABS: PHOSPHORUS 3.5 mg/dL (2.5-4.9)
[2021-08-26 10:44] LABS: CREATINE KINASE 72 IU/L (26-192); CREATINE KINASE MB FRACTION 1.2 ng/mL (0.5-3.6)
[2021-08-26 12:00] VITALS: BP 114/75
[2021-08-26 15:05] LABS: *BARBITURATES SCREEN URINE NEGATIVE (NEGATIVE); CANNABINOID URINE SCREEN NEGATIVE (NEGATIVE); METHADONE URINE SCREEN NEGATIVE (NEGATIVE); OPIATES URINE SCREEN NEGATIVE (NEGATIVE); PHENCYCLIDINE URINE SCREEN NEGATIVE (NEGATIVE)
[2021-08-26 15:06] LABS: *AMPHETAMINES SCREEN URINE NEGATIVE (NEGATIVE); *BENZODIAZEPINES SCREEN URINE NEGATIVE (NEGATIVE); *COCAINE SCREEN URINE NEGATIVE (NEGATIVE)
[2021-08-26 16:00] VITALS: BP 105/64
[2021-08-26 20:00] VITALS: BP 104/63
[2021-08-26] MEDS: TRAMADOL 50MG TABLET PO PRN (22:42)
[2021-08-27] VITALS: BP 112/66
[2021-08-27] MEDS: KETOROLAC 15MG/ML VIAL IV PRN ×3 (01:25→20:42)
[2021-08-27 04:00] VITALS: BP 109/62
[2021-08-27] MEDS: SODIUM CHLORIDE 0.9% 1,000 ML IV SCH ×3 (06:23→12:05)
[2021-08-27] MEDS: MORPHINE SULFATE 2 MG/ML CPJ (NOT FOR IM USE) IV PRN (08:05)
[2021-08-27] MEDS: FAMOTIDINE 20MG TABLET PO SCH ×2 (08:05→20:41)
[2021-08-27] MEDS: FOLIC ACID 1MG TABLET PO SCH (09:00)
[2021-08-27] MEDS ORDERED: MORPHINE SULFATE 2 MG/ML CPJ (NOT FOR IM USE) IV PRN (09:30)
[2021-08-27 10:00] VITALS: BP 117/51
[2021-08-27 11:19] LABS: BASOPHILS % 1.2 % (0.0-2.0); EOSINOPHILS % 2.9 % (0.0-5.0); HEMATOCRIT. 21.3 % (36.0-48.0); HEMOGLOBIN. 7.1 g/dL (12.0-16.0); LYMPHOCYTES % 25.5 % (20.0-50.0); MEAN CORPUSCULAR HEMOGLOBIN 24.9 pg (28.0-32.0); MEAN CORPUSCULAR VOLUME 74.5 fL (81.0-99.0); MEAN PLATELET VOLUME 8.9 fl (7.4-10.4); MONOCYTES % 9.2 % (2.0-8.0); NEUTROPHILS % 61.2 % (40.0-76.0); PLATELET 288 x1000/uL (130-400); RED BLOOD CELL COUNT 2.85 mill/uL (4.2-5.4); RED CELL DISTRIBUTION WIDTH 17.9 % (11.6-14.6)
[2021-08-27 11:50] LABS: CHLORIDE 110 mEq/L (98-107)
[2021-08-27 13:00] VITALS: BP 104/63
[2021-08-27 20:00] VITALS: BP 99/55
[2021-08-27] MEDS: TRAMADOL 50MG TABLET PO PRN (23:59)
[2021-08-28] VITALS: BP 107/67
[2021-08-28 04:00] VITALS: BP 113/68
[2021-08-28] MEDS: KETOROLAC 15MG/ML VIAL IV PRN (05:47)
[2021-08-28 09:33] VITALS: BP 113/68
[2021-08-28] MEDS: FOLIC ACID 1MG TABLET PO SCH (09:37)
[2021-08-28] MEDS: FAMOTIDINE 20MG TABLET PO SCH (09:37)
== END 2021-08-28 12:40 | disposition home or self-care (01) | DRG 662 ==
LOC: ER 21:32 → 6EST 08-25 03:41
PROVIDERS: ADMIT Internal Medicine; ATTEND Internal Medicine
DX: D57.00 Hb-SS disease with crisis, unspecified (principal); Z20.822 Contact with and (suspected) exposure to COVID-19; Z79.899 Other long term (current) drug therapy; Z88.8 Allergy status to other drugs, medicaments and biological substances; Z88.1 Allergy status to other antibiotic agents; Z88.2 Allergy status to sulfonamides
CPT/HCPCS: 36415; 71045; 80053; 80305; 81003; 82550; 82553; 82607; 82746; 83540; 83550; 83615; 83735; 84100; 84484; 85025; 85027; 85044; 87426; 93005; 93970; 99285; J1170; J1885; J2270; J2405; J7030

== ENCOUNTER 2021-10-08 19:12 | Inpatient (IN) | payer MEDICAID ==
[~2021-10-08] VITALS: Ht 167.6 cm; Wt 67.8 kg
[2021-10-08] MEDS ORDERED: MORPHINE SULFATE 4 MG/ML CPJ (NOT FOR IM USE) IV STA ×2 (21:02→22:56)
[2021-10-08] MEDS ORDERED: ONDANSETRON HCL 4MG/2ML INJ IV STA (21:02)
[2021-10-08] MEDS ORDERED: KETOROLAC 30MG/ML VIAL IV STA (21:02)
[2021-10-08] MEDS ORDERED: SODIUM CHLORIDE 0.9% 1,000 ML IV ONE ×2 (21:15→23:00)
[2021-10-08 21:54] LABS: CHLORIDE 112 mEq/L (98-107)
[2021-10-08 21:58] LABS: HCG SCREEN NEGATIVE
[2021-10-08 22:02] LABS: BASOPHILS % 0.9 % (0.0-2.0); HEMATOCRIT. 24.6 % (36.0-48.0); HEMOGLOBIN. 8.1 g/dL (12.0-16.0); LYMPHOCYTES % 31.4 % (20.0-50.0); MEAN CORPUSCULAR HEMOGLOBIN 25.3 pg (28.0-32.0); MEAN CORPUSCULAR VOLUME 76.7 fL (81.0-99.0); MEAN PLATELET VOLUME 9.2 fl (7.4-10.4); MONOCYTES % 9.2 % (2.0-8.0); NEUTROPHILS % 56.5 % (40.0-76.0); PLATELET 317 x1000/uL (130-400); RED BLOOD CELL COUNT 3.21 mill/uL (4.2-5.4); RED CELL DISTRIBUTION WIDTH 18.4 % (11.6-14.6)
[2021-10-09 03:20] LABS: CLARITY URINE CLEAR (CLEAR); COLOR URINE YELLOW (YELLOW); KETONES URINE NEGATIVE (NEGATIVE); LEUKOCYTE ESTERASE URINE NEGATIVE (NEGATIVE); NITRITE URINE NEGATIVE (NEGATIVE); OCCULT BLOOD URINE NEGATIVE (NEGATIVE); PROTEIN URINE NEGATIVE (NEGATIVE); SPECIFIC GRAVITY URINE 1.011 (1.005-1.030); UROBILINOGEN URINE 0.2 E.U./dL (0.2-1.0)
[2021-10-09 09:00] VITALS: BP 103/57
[2021-10-09 10:00] VITALS: BP 103/59
[2021-10-09] MEDS ORDERED: ONDANSETRON HCL 4MG/2ML INJ IV PRN (10:00)
[2021-10-09] MEDS ORDERED: ACETAMINOPHEN 325MG TABLET PO PRN (10:00)
[2021-10-09] MEDS ORDERED: KETOROLAC 30MG/ML VIAL IV PRN (10:00)
[2021-10-09 12:00] VITALS: BP 112/62
[2021-10-09] MEDS: HYDROCODONE/ACETAMINOPHEN 10/325MG TABLET PO PRN ×2 (14:09→21:24)
[2021-10-09 16:00] VITALS: BP 108/57
[2021-10-09] MEDS: SODIUM CHLORIDE 0.45% 1,000 ML IV SCH (16:02)
[2021-10-09 20:00] VITALS: BP 102/65
[2021-10-09] MEDS ORDERED: NALOXONE HCL 0.4MG/ML VIAL IV PRN (22:15)
[2021-10-10] VITALS: BP 104/63
[2021-10-10 04:00] VITALS: BP 106/52
[2021-10-10] MEDS: HYDROCODONE/ACETAMINOPHEN 10/325MG TABLET PO PRN ×3 (04:10→21:06)
[2021-10-10] MEDS: SODIUM CHLORIDE 0.45% 1,000 ML IV SCH ×2 (07:18→12:40)
[2021-10-10 08:00] VITALS: BP 101/52
[2021-10-10] MEDS: FOLIC ACID 1MG TABLET PO SCH (09:40)
[2021-10-10 12:00] VITALS: BP 103/64
[2021-10-10 16:00] VITALS: BP 109/60
[2021-10-10 20:00] VITALS: BP 107/65
[2021-10-11] VITALS: BP 101/58
[2021-10-11] MEDS: HYDROCODONE/ACETAMINOPHEN 10/325MG TABLET PO PRN ×2 (03:13→12:10)
[2021-10-11 04:00] VITALS: BP 107/56
[2021-10-11 08:00] VITALS: BP 105/58
[2021-10-11] MEDS: FOLIC ACID 1MG TABLET PO SCH (08:41)
[2021-10-11 11:27] VITALS: BP 105/58
[2021-10-11 12:00] VITALS: BP 108/57
[2021-10-11 12:10] VITALS: BP 110/59
[2021-10-11 13:04] LABS: HEMATOCRIT 26.4 % (36.0-48.0); HEMOGLOBIN 8.1 g/dL (12.0-16.0)
== END 2021-10-11 11:45 | disposition home or self-care (01) | DRG 662 ==
LOC: ER 19:12 → MICUSO 10-09 01:22 → 6EST 10-09 08:57
PROVIDERS: ADMIT Internal Medicine Nephrology; ATTEND Internal Medicine Nephrology
DX: D57.00 Hb-SS disease with crisis, unspecified (principal); E87.8 Other disorders of electrolyte and fluid balance, not elsewhere classified; F32.A Depression, unspecified; F41.9 Anxiety disorder, unspecified; D64.9 Anemia, unspecified; Z88.2 Allergy status to sulfonamides; Z88.8 Allergy status to other drugs, medicaments and biological substances; Z79.899 Other long term (current) drug therapy; Z80.8 Family history of malignant neoplasm of other organs or systems
CPT/HCPCS: 36415; 71045; 80053; 81003; 84484; 84703; 85014; 85018; 85025; 85044; 93005; 99285; J1885; J2270; J2405; J7030

== ENCOUNTER 2021-11-17 00:18 | Emergency (ER) | payer MEDICAID, MEDICARE ==
[~2021-11-17] VITALS: Ht 167.6 cm; Wt 74.0 kg
[2021-11-17] MEDS ORDERED: HYDR-4001 MT ×2 (01:40→03:08)
[2021-11-17] MEDS ORDERED: HYDROCODONE/APAP 7.5/325MG 1 TAB TABLET PO ONE (02:30)
[2021-11-17 03:30] LABS: BASOPHILS % 0.9 % (0.0-2.0); EOSINOPHILS % 2.1 % (0.0-5.0); HEMATOCRIT. 23.7 % (36.0-48.0); HEMOGLOBIN. 8.1 g/dL (12.0-16.0); LYMPHOCYTES % 33.7 % (20.0-50.0); MEAN CORPUSCULAR HEMOGLOBIN 25.8 pg (28.0-32.0); MEAN CORPUSCULAR VOLUME 75.4 fL (81.0-99.0); MEAN PLATELET VOLUME 8.2 fl (7.4-10.4); MONOCYTES % 9.3 % (2.0-8.0); PLATELET 307 x1000/uL (130-400); RED BLOOD CELL COUNT 3.14 mill/uL (4.2-5.4); RED CELL DISTRIBUTION WIDTH 19.1 % (11.6-14.6)
[2021-11-17] MEDS ORDERED: SODIUM CHLORIDE 0.9% 1,000 ML IV ONE (04:00)
[2021-11-17] MEDS ORDERED: MORPHINE SULFATE 4 MG/ML CPJ (NOT FOR IM USE) IV ONE (04:00)
[2021-11-17 06:51] VITALS: BP 123/75
== END 2021-11-17 06:54 | disposition home or self-care (01) ==
LOC: ER 00:18
DX: D57.00 Hb-SS disease with crisis, unspecified (principal); Z88.8 Allergy status to other drugs, medicaments and biological substances; Z88.2 Allergy status to sulfonamides
CPT/HCPCS: 36415; 85025; 96374; 99283; J2270; J7030; Z7610

== ENCOUNTER 2021-12-03 08:49 | Inpatient (IN) | payer MEDICAID ==
[~2021-12-03] VITALS: Ht 167.6 cm; Wt 77.2 kg
[2021-12-03] MEDS ORDERED: SODIUM CHLORIDE 0.45% 1,000 ML IV ONE (09:30)
[2021-12-03] MEDS ORDERED: MORPHINE SULFATE 4 MG/ML CPJ (NOT FOR IM USE) IV ONE ×2 (09:30→10:45)
[2021-12-03 09:48] LABS: BASOPHILS % 0.7 % (0.0-2.0); EOSINOPHILS % 2.9 % (0.0-5.0); HEMATOCRIT. 24.6 % (36.0-48.0); HEMOGLOBIN. 8.4 g/dL (12.0-16.0); LYMPHOCYTES % 26.9 % (20.0-50.0); MEAN CORPUSCULAR HEMOGLOBIN 25.6 pg (28.0-32.0); MEAN CORPUSCULAR VOLUME 75.5 fL (81.0-99.0); MEAN PLATELET VOLUME 8.4 fl (7.4-10.4); MONOCYTES % 8.2 % (2.0-8.0); NEUTROPHILS % 61.3 % (40.0-76.0); PLATELET 331 x1000/uL (130-400); RED BLOOD CELL COUNT 3.26 mill/uL (4.2-5.4); RED CELL DISTRIBUTION WIDTH 17.7 % (11.6-14.6)
[2021-12-03 09:51] LABS: CHLORIDE 110 mEq/L (98-107)
[2021-12-03 09:52] LABS: HCG SCREEN NEGATIVE
[2021-12-03 09:54] LABS: CLARITY URINE CLEAR (CLEAR); COLOR URINE YELLOW (YELLOW); KETONES URINE NEGATIVE (NEGATIVE); LEUKOCYTE ESTERASE URINE NEGATIVE (NEGATIVE); NITRITE URINE NEGATIVE (NEGATIVE); OCCULT BLOOD URINE NEGATIVE (NEGATIVE); PROTEIN URINE NEGATIVE (NEGATIVE); SPECIFIC GRAVITY URINE 1.012 (1.005-1.030)
[2021-12-03] MEDS ORDERED: CEFTRIAXONE 1 G PREMIX 50 ML IV ONE (10:45)
[2021-12-03] MEDS ORDERED: ONDANSETRON HCL 4MG/2ML INJ IV ONE (10:45)
[2021-12-03] MEDS ORDERED: KETOROLAC 30MG/ML VIAL IV PRN (13:15)
[2021-12-03] MEDS ORDERED: NALOXONE HCL 0.4MG/ML VIAL IV PRN (13:30)
[2021-12-03] MEDS: SODIUM CHLORIDE 0.45% 1,000 ML IV SCH (14:12)
[2021-12-03 14:40] VITALS: BP 105/68
[2021-12-03 16:00] VITALS: BP 112/63
[2021-12-03] MEDS: HYDROCODONE/ACETAMINOPHEN 5/325MG TABLET PO PRN (18:53)
[2021-12-03 20:00] VITALS: BP 98/46
[2021-12-04] VITALS: BP 109/40
[2021-12-04] MEDS: HYDROCODONE/ACETAMINOPHEN 5/325MG TABLET PO PRN ×3 (00:09→12:37)
[2021-12-04 04:00] VITALS: BP 101/40
[2021-12-04] MEDS: SODIUM CHLORIDE 0.45% 1,000 ML IV SCH (04:16)
[2021-12-04 08:00] VITALS: BP 100/58
[2021-12-04] MEDS ORDERED: FOLIC ACID 1MG TABLET PO SCH (09:00)
[2021-12-04 12:00] VITALS: BP 102/47
[2021-12-04] MEDS ORDERED: HYDR-4001 MT (12:31)
[2021-12-04 13:26] VITALS: BP_SYST 102; BP_SYST 115; BP_DIAS 42; BP_DIAS 47
[2021-12-04 15:53] VITALS: BP 115/42
== END 2021-12-04 16:40 | disposition home or self-care (01) | DRG 662 ==
LOC: ER 09:08 → 7WST 11:52 → ENRESERV 12:16
PROVIDERS: ADMIT Internal Medicine Nephrology; ATTEND Internal Medicine Nephrology
DX: D57.00 Hb-SS disease with crisis, unspecified (principal); E87.8 Other disorders of electrolyte and fluid balance, not elsewhere classified; F32.A Depression, unspecified; F41.9 Anxiety disorder, unspecified; R07.1 Chest pain on breathing; Z88.8 Allergy status to other drugs, medicaments and biological substances
CPT/HCPCS: 36415; 71045; 80053; 81003; 83605; 84703; 85025; 85044; 93005; 99285; J0696; J1885; J2270; J2405

== ENCOUNTER 2022-01-25 20:54 | Emergency (ER) | payer MEDICAID ==
[~2022-01-25] VITALS: Ht 170.2 cm; Wt 75.8 kg
[2022-01-26] MEDS ORDERED: KETOROLAC 30MG/ML VIAL IV NR
[2022-01-26] MEDS ORDERED: MORPHINE SULFATE 4 MG/ML CPJ (NOT FOR IM USE) IV NR
[2022-01-26 00:13] LABS: HEMATOCRIT 30.4 % (36.0-48.0); HEMOGLOBIN 9.8 g/dL (12.0-16.0); MEAN CORPUSCULAR HEMOGLOBIN 25.3 pg (28.0-32.0); MEAN CORPUSCULAR VOLUME 78.5 fL (81.0-99.0); PLATELET 361 x1000/uL (130-400); RED BLOOD CELL COUNT 3.87 mill/uL (4.2-5.4); RED CELL DISTRIBUTION WIDTH 17.6 % (11.6-14.6)
[2022-01-26 00:17] LABS: CHLORIDE 107 mEq/L (98-107)
[2022-01-26 01:15] LABS: CLARITY URINE CLEAR (CLEAR); COLOR URINE YELLOW (YELLOW); KETONES URINE NEGATIVE (NEGATIVE); LEUKOCYTE ESTERASE URINE NEGATIVE (NEGATIVE); NITRITE URINE NEGATIVE (NEGATIVE); OCCULT BLOOD URINE NEGATIVE (NEGATIVE); PROTEIN URINE NEGATIVE (NEGATIVE); SPECIFIC GRAVITY URINE 1.012 (1.005-1.030); UROBILINOGEN URINE 0.2 E.U./dL (0.2-1.0)
[2022-01-26] MEDS ORDERED: SODIUM CHLORIDE 0.9% 1000ML BAG (SEPSIS BOLUS) IV ONE (01:15)
[2022-01-26] MEDS ORDERED: HYDROMORPHONE HCL/PF 2MG/ML CPJ IV ONE ×2 (02:30→04:30)
[2022-01-26] MEDS ORDERED: ACETAMINOPHEN 325MG TABLET PO PRN (05:15)
[2022-01-26] MEDS ORDERED: MAGNESIUM/ALUMINUM HYDROXIDE/SIMETHICONE 30ML UDC PO PRN (05:15)
[2022-01-26] MEDS ORDERED: HYDROMORPHONE HCL/PF 2MG/ML CPJ IV PRN (05:15)
[2022-01-26] MEDS ORDERED: ONDANSETRON HCL 4MG/2ML INJ IV PRN (05:15)
[2022-01-26] MEDS ORDERED: DOCUSATE SODIUM 100MG CAPSULE PO PRN (05:15)
[2022-01-26] MEDS ORDERED: TRAMADOL 50MG TABLET PO PRN (05:15)
[2022-01-26] MEDS ORDERED: GUAIFENESIN 200MG/10ML SUGAR FREE UDC PO PRN (05:15)
[2022-01-26 05:22] VITALS: BP 108/63
[2022-01-26] MEDS ORDERED: NALOXONE HCL 0.4MG/ML VIAL IV PRN (05:30)
[2022-01-26] MEDS ORDERED: FOLIC ACID/VITAMIN B COMP W-C TABLET PO SCH (09:00)
[2022-01-26] MEDS ORDERED: HYDROXYUREA 500MG CAPSULE PO SCH (09:00)
== END 2022-01-26 08:27 | disposition left against medical advice (07) ==
LOC: ER 20:54 → ENRESERV 01-26 07:56 → CANRESERV 01-26 07:56 → CANBEDREQ 01-26 08:07 → ER 01-26 08:27
DX: D57.09 Hb-SS disease with crisis with other specified complication (principal)
CPT/HCPCS: 36415; 80053; 81003; 81025; 85027; 85044; 93005; 96361; 96374; 96375; 96376; 99285; J1170; J1885; J2270; J7030

== ENCOUNTER 2022-03-17 23:17 | Emergency (ER) | payer MEDICAID ==
[~2022-03-17] VITALS: Ht 172.7 cm; Wt 89.8 kg
[2022-03-17] MEDS ORDERED: MORPHINE SULFATE 4 MG/ML CPJ (NOT FOR IM USE) IV STA (23:43)
[2022-03-18 00:37] LABS: HEMATOCRIT. 24.3 % (36.0-48.0); HEMOGLOBIN. 8.3 g/dL (12.0-16.0); MEAN CORPUSCULAR VOLUME 78.9 fL (81.0-99.0); MEAN PLATELET VOLUME 8.4 fl (7.4-10.4); PLATELET 324 x1000/uL (130-400); RED BLOOD CELL COUNT 3.08 mill/uL (4.2-5.4); RED CELL DISTRIBUTION WIDTH 19.1 % (11.6-14.6)
[2022-03-18 00:54] LABS: CHLORIDE 106 mEq/L (98-107)
[2022-03-18 00:58] LABS: HCG SCREEN NEGATIVE
[2022-03-18 01:55] LABS: PLATELET ESTIMATE NORMAL
[2022-03-18] MEDS ORDERED: MORPHINE SULFATE 4 MG/ML CPJ (NOT FOR IM USE) IV NR (05:15)
[2022-03-18] MEDS ORDERED: SODIUM CHLORIDE 0.9% 1,000 ML IV ONE (06:00)
[2022-03-18] MEDS ORDERED: MORPHINE SULFATE 4 MG/ML CPJ (NOT FOR IM USE) IV ONE (06:45)
[2022-03-18 09:18] VITALS: BP 109/69
== END 2022-03-18 10:11 | disposition left against medical advice (07) ==
LOC: ER 23:17 → EDBEDREQ 03-18 08:29 → EDBEDREQTM 03-18 08:29 → CANBEDREQ 03-18 09:58 → ER 03-18 10:11
DX: D57.00 Hb-SS disease with crisis, unspecified (principal); R07.89 Other chest pain; Z79.899 Other long term (current) drug therapy
CPT/HCPCS: 36415; 71045; 80053; 84703; 85025; 85660; 86850; 86900; 86901; 96361; 96374; 96376; 99284; J2270; J7030

== ENCOUNTER 2022-04-17 21:50 | Inpatient (IN) | payer MEDICAID ==
[~2022-04-17] VITALS: Ht 167.6 cm; Wt 75.8 kg
[2022-04-18] MEDS ORDERED: ONDANSETRON HCL 4MG/2ML INJ IV STA (02:35)
[2022-04-18] MEDS ORDERED: MORPHINE SULFATE 4 MG/ML CPJ (NOT FOR IM USE) IV STA (02:35)
[2022-04-18] MEDS ORDERED: SODIUM CHLORIDE 0.9% 1,000 ML IV ONE (02:45)
[2022-04-18 03:27] LABS: CHLORIDE 107 mEq/L (98-107)
[2022-04-18 03:32] LABS: BASOPHILS % 0.9 % (0.0-2.0); EOSINOPHILS % 0.2 % (0.0-5.0); HEMATOCRIT. 23.4 % (36.0-48.0); HEMOGLOBIN. 7.8 g/dL (12.0-16.0); LYMPHOCYTES % 11.5 % (20.0-50.0); MEAN CORPUSCULAR HEMOGLOBIN 26.3 pg (28.0-32.0); MEAN CORPUSCULAR VOLUME 78.7 fL (81.0-99.0); MEAN PLATELET VOLUME 8.4 fl (7.4-10.4); MONOCYTES % 7.2 % (2.0-8.0); NEUTROPHILS % 80.2 % (40.0-76.0); PLATELET 249 x1000/uL (130-400); RED BLOOD CELL COUNT 2.97 mill/uL (4.2-5.4); RED CELL DISTRIBUTION WIDTH 18.2 % (11.6-14.6)
[2022-04-18] MEDS ORDERED: MORPHINE SULFATE 10 MG/ML CPJ IV ONE (04:45)
[2022-04-18 05:15] LABS: HCG SCREEN NEGATIVE
[2022-04-18] MEDS: SODIUM CHLORIDE 0.9% 1,000 ML IV SCH ×3 (11:00→21:00)
[2022-04-18] MEDS ORDERED: MORPHINE SULFATE 2 MG/ML CPJ (NOT FOR IM USE) IV PRN (11:00)
[2022-04-18] MEDS ORDERED: NALOXONE HCL 0.4MG/ML VIAL IV PRN (11:15)
[2022-04-18] MEDS ORDERED: SODIUM CHLORIDE 0.9% 1,000 ML IV SCH (12:00)
[2022-04-18] MEDS ORDERED: HYDROCODONE/ACETAMINOPHEN 10/325MG TABLET PO PRN (12:00)
[2022-04-18 13:37] VITALS: BP 125/63
[2022-04-18] MEDS: FOLIC ACID 1MG TABLET PO SCH (14:05)
[2022-04-18 16:00] VITALS: BP 108/53
[2022-04-18] MEDS: MORPHINE SULFATE 4 MG/ML CPJ (NOT FOR IM USE) IV PRN ×2 (16:19→20:37)
[2022-04-18 20:00] VITALS: BP 101/52
[2022-04-19] MEDS: MORPHINE SULFATE 4 MG/ML CPJ (NOT FOR IM USE) IV PRN ×3 (01:29→11:05)
[2022-04-19] MEDS: SODIUM CHLORIDE 0.9% 1,000 ML IV SCH (02:09)
[2022-04-19 08:00] VITALS: BP_SYST 100; BP_SYST 124; BP_DIAS 53; BP_DIAS 77
[2022-04-19] MEDS: FOLIC ACID 1MG TABLET PO SCH (10:10)
[2022-04-19] MEDS ORDERED: HYDROMORPHONE HCL/PF 2MG/ML CPJ IM PRN (11:15)
[2022-04-19] MEDS ORDERED: OXYCODONE HCL/ACETAMINOPHEN 5/325MG TABLET PO PRN (11:15)
[2022-04-19] MEDS ORDERED: NALOXONE HCL 0.4MG/ML VIAL IV PRN (11:30)
[2022-04-19 12:00] VITALS: BP 101/60
[2022-04-19 14:02] VITALS: BP 101/60
[2022-04-19 17:48] LABS: HEMATOCRIT. 22.1 % (36.0-48.0); HEMOGLOBIN. 7.4 g/dL (12.0-16.0); MEAN CORPUSCULAR HEMOGLOBIN 26.5 pg (28.0-32.0); MEAN CORPUSCULAR VOLUME 79.2 fL (81.0-99.0); MEAN PLATELET VOLUME 8.6 fl (7.4-10.4); PLATELET 221 x1000/uL (130-400); RED BLOOD CELL COUNT 2.79 mill/uL (4.2-5.4); RED CELL DISTRIBUTION WIDTH 18.2 % (11.6-14.6)
[2022-04-19 18:10] LABS: PLATELET ESTIMATE NORMAL
== END 2022-04-19 16:40 | disposition left against medical advice (07) | DRG 662 ==
LOC: ER 22:09 → 4WST 04-18 05:26 → EDBEDREQ 04-18 05:27 → EDBEDREQTM 04-18 05:27 → ENRESERV 04-18 09:04 → 6EST 04-19 12:08
PROVIDERS: ADMIT Internal Medicine Nephrology; ATTEND Internal Medicine Nephrology
DX: D57.00 Hb-SS disease with crisis, unspecified (principal); D72.829 Elevated white blood cell count, unspecified; R07.9 Chest pain, unspecified; Z53.29 Procedure and treatment not carried out because of patient's decision for other reasons; Z88.1 Allergy status to other antibiotic agents; Z91.09 Other allergy status, other than to drugs and biological substances
CPT/HCPCS: 36415; 71045; 80053; 83605; 84703; 85025; 85044; 93005; 99285; C1893; J2270; J2405; J7030

== ENCOUNTER 2023-12-24 09:24 | Emergency (ER) | payer MEDICAID ==
[~2023-12-24] VITALS: Ht 167.6 cm; Wt 69.0 kg
[2023-12-24 09:33] VITALS: O2SAT 98
[2023-12-24 10:22] LABS: HEMATOCRIT. 24.8 % (36.0-48.0); HEMOGLOBIN. 8.2 g/dL (12.0-16.0); MEAN CORPUSCULAR HEMOGLOBIN 24.5 pg (28.0-32.0); MEAN CORPUSCULAR HGB CONC 32.9 g/dL (31.0-37.0); MEAN CORPUSCULAR VOLUME 74.2 fL (81.0-99.0); MEAN PLATELET VOLUME 8.3 fl (7.4-10.4); PLATELET 349 x1000/uL (130-400); RED BLOOD CELL COUNT 3.34 mill/uL (4.2-5.4); RED CELL DISTRIBUTION WIDTH 18.7 % (11.6-14.6); WHITE BLOOD COUNT 13.8 x1000/uL (4.5-11.0)
[2023-12-24 10:24] LABS: CHLORIDE 104 mEq/L (98-107); DIFFERENTIAL COMMENT 1; POTASSIUM 3.9 mEq/L (3.5-5.1); SODIUM 137 mEq/L (136-145)
[2023-12-24 10:25] LABS: CARBON DIOXIDE 23 mEq/L (21-32)
[2023-12-24 10:26] LABS: CALCIUM 9.6 mg/dL (8.7-10.4)
[2023-12-24 10:30] LABS: CREATININE 0.6 mg/dL (0.6-1.0); GLUCOSE 91 mg/dL (70-105)
[2023-12-24 10:31] LABS: UREA NITROGEN BLOOD 12 mg/dL (9-23)
[2023-12-24 12:58] LABS: NUCLEATED RED BLOOD CELLS 2 /100 WBC
[2023-12-24 12:59] LABS: ANISOCYTOSIS 2+; MICROCYTOSIS 2+; PLATELET ESTIMATE NORMAL; SICKLE CELLS 1+; TARGET CELLS 1+
[2023-12-24] MEDS: SODIUM CHLORIDE 0.9% 1,000 ML IV ONE (13:54)
[2023-12-24] MEDS: MORPHINE SULFATE 4 MG/ML INJ (FOR IV/IM USE) IV STA (13:54)
[2023-12-24] MEDS: KETOROLAC 30MG/ML VIAL IV STA (13:55)
[2023-12-24 14:45] VITALS: TEMP 98.7
[2023-12-24 15:19] LABS: CLARITY URINE CLEAR (CLEAR); COLOR URINE YELLOW (YELLOW); GLUCOSE URINE NEGATIVE (NEGATIVE); KETONES URINE NEGATIVE (NEGATIVE); LEUKOCYTE ESTERASE URINE TRACE (NEGATIVE); NITRITE URINE NEGATIVE (NEGATIVE); OCCULT BLOOD URINE TRACE (NEGATIVE); PH URINE 5.5 (4.5-8.0); PROTEIN URINE NEGATIVE (NEGATIVE); SPECIFIC GRAVITY URINE 1.013 (1.005-1.030)
[2023-12-24 15:39] LABS: BACTERIA URINE 1+; RBC URINE 0-2 /hpf (0-2); SQUAMOUS EPITHELIAL CELL URINE FEW /lpf (RARE/1+)
[2023-12-24 16:07] VITALS: BP 105/68; PULSE 76; RESP 15
[2023-12-24] MEDS: MORPHINE SULFATE 4 MG/ML INJ (FOR IV/IM USE) IV ONE (16:07)
== END 2023-12-24 17:10 | disposition left against medical advice (07) ==
LOC: ER 09:24
DX: M54.9 Dorsalgia, unspecified (principal); D57.80 Other sickle-cell disorders without crisis; Z88.2 Allergy status to sulfonamides; Z88.8 Allergy status to other drugs, medicaments and biological substances
CPT/HCPCS: 80048; 81003; 81025; 85025; 85044; 36415; 71045; 96361; 96374; 96375; 96376; 99291; J1885; J2270; J7030; Z7610 ×4

== ENCOUNTER 2024-01-17 07:27 | Emergency (ER) | payer MEDICAID ==
[~2024-01-17] VITALS: Ht 167.6 cm; Wt 68.0 kg
[2024-01-17 07:42] VITALS: O2SAT 98
[2024-01-17 08:09] LABS: CHLORIDE 109 mEq/L (98-107); POTASSIUM 3.8 mEq/L (3.5-5.1); SODIUM 139 mEq/L (136-145)
[2024-01-17 08:10] LABS: CALCIUM 9.5 mg/dL (8.7-10.4); CARBON DIOXIDE 23 mEq/L (21-32); HEMATOCRIT. 25.2 % (36.0-48.0); HEMOGLOBIN. 8.3 g/dL (12.0-16.0); MEAN CORPUSCULAR HEMOGLOBIN 24.7 pg (28.0-32.0); MEAN CORPUSCULAR HGB CONC 32.8 g/dL (31.0-37.0); MEAN CORPUSCULAR VOLUME 75.4 fL (81.0-99.0); MEAN PLATELET VOLUME 8.4 fl (7.4-10.4); PLATELET 326 x1000/uL (130-400); RED BLOOD CELL COUNT 3.34 mill/uL (4.2-5.4); RED CELL DISTRIBUTION WIDTH 17.4 % (11.6-14.6)
[2024-01-17 08:15] LABS: CREATININE 0.7 mg/dL (0.6-1.0); GLUCOSE 91 mg/dL (70-105); UREA NITROGEN BLOOD 5 mg/dL (9-23)
[2024-01-17 08:17] LABS: DIFFERENTIAL COMMENT 1
[2024-01-17] MEDS: SODIUM CHLORIDE 0.9% 500 ML IV ONE (09:20)
[2024-01-17] MEDS: MORPHINE SULFATE 4 MG/ML INJ (FOR IV/IM USE) IV ONE ×2 (09:34→10:08)
[2024-01-17] MEDS: KETOROLAC 15MG/ML VIAL IV ONE (10:08)
[2024-01-17 12:43] VITALS: BP 99/67; PULSE 48; RESP 12; TEMP 98.3
[2024-01-17 13:32] LABS: NUCLEATED RED BLOOD CELLS 2 /100 WBC
[2024-01-17 13:33] LABS: PLATELET ESTIMATE NORMAL
[2024-01-17 13:34] LABS: SICKLE CELLS FEW
[2024-01-17 13:35] LABS: ANISOCYTOSIS 2+; HYPOCHROMASIA 2+; MICROCYTOSIS 1+
[2024-01-17 13:36] LABS: TARGET CELLS FEW
== END 2024-01-17 13:45 | disposition home or self-care (01) ==
LOC: ER 07:37 → EDBEDREQTM 11:47 → EDBEDREQ 11:47 → CANBEDREQ 12:37 → ER 13:45
DX: D57.1 Sickle-cell disease without crisis (principal); D53.9 Nutritional anemia, unspecified; Z88.2 Allergy status to sulfonamides; Z88.8 Allergy status to other drugs, medicaments and biological substances
CPT/HCPCS: 80048; 85025; 36415; 96361; 96374; 96375; 96376; 99284; J1885; J2270; J7040; Z7610 ×6

== ENCOUNTER 2024-02-19 08:08 | Emergency (ER) | payer MEDICAID ==
[~2024-02-19] VITALS: Ht 170.2 cm; Wt 65.0 kg
[~2024-02-19 08:08] MED LIST changes: -HYDR-4001 MT; +HYDR-4005 MT
[2024-02-19 08:16] VITALS: O2SAT 99
[2024-02-19 08:38] LABS: HEMATOCRIT. 24.2 % (36.0-48.0); HEMOGLOBIN. 8.1 g/dL (12.0-16.0); MEAN CORPUSCULAR HEMOGLOBIN 25.6 pg (28.0-32.0); MEAN CORPUSCULAR HGB CONC 33.5 g/dL (31.0-37.0); MEAN CORPUSCULAR VOLUME 76.2 fL (81.0-99.0); MEAN PLATELET VOLUME 8.2 fl (7.4-10.4); PLATELET 386 x1000/uL (130-400); RED BLOOD CELL COUNT 3.18 mill/uL (4.2-5.4); RED CELL DISTRIBUTION WIDTH 18.3 % (11.6-14.6); WHITE BLOOD COUNT 10.5 x1000/uL (4.5-11.0)
[2024-02-19 08:48] LABS: CHLORIDE 108 mEq/L (98-107); POTASSIUM 3.8 mEq/L (3.5-5.1); SODIUM 138 mEq/L (136-145)
[2024-02-19 08:49] LABS: CALCIUM 9.9 mg/dL (8.7-10.4); CARBON DIOXIDE 23 mEq/L (21-32)
[2024-02-19 08:50] LABS: DIFFERENTIAL COMMENT 1
[2024-02-19 08:54] LABS: CREATININE 0.6 mg/dL (0.6-1.0); GLUCOSE 107 mg/dL (70-105)
[2024-02-19 08:55] LABS: UREA NITROGEN BLOOD 9 mg/dL (9-23)
[2024-02-19] MEDS: HYDROMORPHONE HCL/PF 2MG/ML INJ IV NR (09:00)
[2024-02-19] MEDS: SODIUM CHLORIDE 0.9% 1,000 ML IV ONE (09:00)
[2024-02-19 12:27] LABS: NUCLEATED RED BLOOD CELLS 1 /100 WBC
[2024-02-19 12:32] LABS: ANISOCYTOSIS 2+; MICROCYTOSIS 3+; PLATELET ESTIMATE NORMAL; SICKLE CELLS 1+
[2024-02-19 12:34] LABS: TARGET CELLS 1+
[2024-02-19] MEDS: KETOROLAC 30MG/ML VIAL IV ONE (13:48)
[2024-02-19] MEDS: HYDROMORPHONE HCL/PF 2MG/ML INJ IV ONE (14:46)
[2024-02-19] MEDS: ONDANSETRON HCL 4MG/2ML INJ IV ONE (14:46)
[2024-02-19 15:24] VITALS: BP 128/84; PULSE 101; RESP 15; TEMP 37.05852; O2SAT 100
== END 2024-02-19 15:27 | disposition left against medical advice (07) ==
LOC: ER 08:53 → EDBEDREQ 13:56 → ER 15:27 → 6EST 02-20 17:40 → UNDOADMIN 02-20 17:40
DX: D57.219 Sickle-cell/Hb-C disease with crisis, unspecified (principal)
CPT/HCPCS: 80048; 85025; 85044; 36415; 96361; 96374; 96375; 96376; 99285; J1885; J2405; J1170; Z7610 ×2

== ENCOUNTER 2024-02-24 13:38 | Emergency (ER) | payer MEDICAID ==
[~2024-02-24] VITALS: Ht 167.6 cm; Wt 68.0 kg
[2024-02-24 13:45] VITALS: O2SAT 99
[2024-02-24 14:02] LABS: HEMATOCRIT. 25.5 % (36.0-48.0); HEMOGLOBIN. 8.5 g/dL (12.0-16.0); MEAN CORPUSCULAR HEMOGLOBIN 25.1 pg (28.0-32.0); MEAN CORPUSCULAR HGB CONC 33.4 g/dL (31.0-37.0); MEAN CORPUSCULAR VOLUME 75.2 fL (81.0-99.0); MEAN PLATELET VOLUME 8.6 fl (7.4-10.4); PLATELET 367 x1000/uL (130-400); RED BLOOD CELL COUNT 3.39 mill/uL (4.2-5.4); RED CELL DISTRIBUTION WIDTH 18.1 % (11.6-14.6); WHITE BLOOD COUNT 14.2 x1000/uL (4.5-11.0)
[2024-02-24 14:09] LABS: CHLORIDE 108 mEq/L (98-107); DIFFERENTIAL COMMENT 1; POTASSIUM 3.7 mEq/L (3.5-5.1); SODIUM 137 mEq/L (136-145)
[2024-02-24 14:10] LABS: CALCIUM 9.2 mg/dL (8.7-10.4); CARBON DIOXIDE 24 mEq/L (21-32)
[2024-02-24 14:15] LABS: CREATININE 0.7 mg/dL (0.6-1.0); GLUCOSE 102 mg/dL (70-105)
[2024-02-24 14:29] LABS: ANISOCYTOSIS 2+; NUCLEATED RED BLOOD CELLS 2 /100 WBC; PLATELET ESTIMATE NORMAL; SICKLE CELLS 1+; TARGET CELLS 2+; TROPONIN I HIGH SENSITIVITY < 4 ng/L (3.0-34); UREA NITROGEN BLOOD < 5 mg/dL (9-23)
[2024-02-24 14:40] LABS: CHLORIDE 107 mEq/L (98-107); POTASSIUM 3.8 mEq/L (3.5-5.1); SODIUM 138 mEq/L (136-145)
[2024-02-24 14:41] LABS: CARBON DIOXIDE 23 mEq/L (21-32)
[2024-02-24 14:42] LABS: CALCIUM 9.1 mg/dL (8.7-10.4)
[2024-02-24] MEDS: SODIUM CHLORIDE 0.9% 1,000 ML IV ONE (14:43)
[2024-02-24 14:46] LABS: CREATININE 0.8 mg/dL (0.6-1.0); GLUCOSE 102 mg/dL (70-105); UREA NITROGEN BLOOD 6 mg/dL (9-23)
[2024-02-24 14:47] LABS: INR 1.1; PROTHROMBIN TIME 12.4 sec (9.6-11.0)
[2024-02-24 14:48] LABS: ALANINE AMINOTRANSFERASE 23 IU/L (10-49); ALBUMIN 4.5 g/dL (3.2-4.8); ASPARTATE AMINOTRANSFERASE 25 IU/L (<34)
[2024-02-24 14:49] LABS: BILIRUBIN TOTAL 2.4 mg/dL (0.1-1.0); PROTEIN TOTAL 7.8 g/dL (6.0-8.3)
[2024-02-24] MEDS: ACETAMINOPHEN 325MG TABLET PO ONE (14:51)
[2024-02-24] MEDS: ONDANSETRON HCL 4MG/2ML INJ IV ONE (14:53)
[2024-02-24] MEDS: MORPHINE SULFATE 4 MG/ML INJ (FOR IV/IM USE) IV ONE (15:04)
[2024-02-24 15:56] VITALS: TEMP 37.11408; O2SAT 99
[2024-02-24 16:00] VITALS: BP 115/69; PULSE 76; RESP 18; TEMP 98.8
[2024-02-24] MEDS ORDERED: DOCUSATE SODIUM 100MG CAPSULE PO PRN (19:45)
[2024-02-24] MEDS ORDERED: GUAIFENESIN 200MG/10ML SUGAR FREE UDC PO PRN (19:45)
[2024-02-24] MEDS ORDERED: SODIUM CHLORIDE 0.9% 1,000 ML IV SCH (19:45)
[2024-02-24] MEDS ORDERED: LORAZEPAM 0.5MG TABLET PO PRN (19:45)
[2024-02-24] MEDS ORDERED: ONDANSETRON HCL 4MG/2ML INJ IV PRN (19:45)
[2024-02-24] MEDS ORDERED: IPRATROPIUM/ALBUTEROL 0.5-3(2.5)MG/3ML NEB HHN PRN (19:45)
[2024-02-24] MEDS ORDERED: CLONIDINE 0.1MG TABLET PO PRN (19:45)
[2024-02-24] MEDS ORDERED: ACETAMINOPHEN 325MG TABLET PO PRN ×2 (19:45)
[2024-02-24] MEDS ORDERED: HYDROCODONE/ACETAMINOPHEN 7.5/325MG TABLET PO PRN (20:15)
[2024-02-24] MEDS ORDERED: POLYETHYLENE GLYCOL 3350 (17GM) 1 DOSE PACK PO PRN (20:15)
[2024-02-24] MEDS ORDERED: SENNOSIDES/DOCUSATE SOD 8.6/50MG TABLET PO SCH (21:00)
[2024-02-25] MEDS ORDERED: MEDICATION NOT ON FORMULARY EA (Folic Acid 1 TAB) MT SCH (09:00)
[2024-02-25] MEDS ORDERED: FOLIC ACID 1MG TABLET PO SCH (09:00)
[2024-02-25] MEDS ORDERED: HYDROXYUREA 500MG CAPSULE PO SCH (09:00)
== END 2024-02-24 19:50 | disposition left against medical advice (07) ==
LOC: ER 13:38 → EDBEDREQ 14:22 → EDBEDREQTM 17:20 → EDBEDREQ 17:20 → EDBEDREQSVC 17:20 → ER 19:50
DX: D57.00 Hb-SS disease with crisis, unspecified (principal); D64.9 Anemia, unspecified; Z88.8 Allergy status to other drugs, medicaments and biological substances; Z88.2 Allergy status to sulfonamides; Z88.5 Allergy status to narcotic agent
CPT/HCPCS: 99285; 96374; 71046; 96375; 80053; 85025; 85044; 85610; 86850; 86900; 86901; 84484; 36415; 93005; 85049; 80048; J2405; J2270; J7030

== ENCOUNTER 2024-03-25 15:36 | Emergency (ER) | payer MEDICAID ==
[~2024-03-25] VITALS: Ht 167.6 cm; Wt 73.0 kg
[~2024-03-25 15:36] MED LIST changes: +HYDR-4001 MT; +TOPUD PO
[2024-03-25 16:19] VITALS: BP 123/74; PULSE 85; RESP 16; TEMP 98.3; O2SAT 98
[2024-03-25 19:34] LABS: CARBON DIOXIDE 22 mEq/L (21-32); CHLORIDE 108 mEq/L (98-107); POTASSIUM 3.7 mEq/L (3.5-5.1); SODIUM 140 mEq/L (136-145)
[2024-03-25 19:35] LABS: HEMATOCRIT. 27.8 % (36.0-48.0); HEMOGLOBIN. 9.2 g/dL (12.0-16.0); MEAN CORPUSCULAR HEMOGLOBIN 25.4 pg (28.0-32.0); MEAN CORPUSCULAR HGB CONC 33.2 g/dL (31.0-37.0); MEAN CORPUSCULAR VOLUME 76.5 fL (81.0-99.0); MEAN PLATELET VOLUME 9.2 fl (7.4-10.4); PLATELET 398 x1000/uL (130-400); RED BLOOD CELL COUNT 3.63 mill/uL (4.2-5.4); RED CELL DISTRIBUTION WIDTH 18.5 % (11.6-14.6)
[2024-03-25 19:38] LABS: DIFFERENTIAL COMMENT 1
[2024-03-25 19:39] LABS: CREATININE 0.8 mg/dL (0.6-1.0); GLUCOSE 85 mg/dL (70-105)
[2024-03-25 19:40] LABS: UREA NITROGEN BLOOD 9 mg/dL (9-23)
[2024-03-25 19:42] LABS: HCG SCREEN NEGATIVE
[2024-03-25 19:52] LABS: ANISOCYTOSIS 1+; MICROCYTOSIS 1+; PLATELET ESTIMATE NORMAL
[2024-03-25] MEDS ORDERED: CEFTRIAXONE 1GM/50ML 50 ML IV ONE (20:30)
[2024-03-25] MEDS ORDERED: HYDROMORPHONE HCL/PF 2MG/ML INJ IV ONE (20:30)
== END 2024-03-25 22:25 | disposition left against medical advice (07) ==
LOC: ER 15:36
DX: D57.00 Hb-SS disease with crisis, unspecified (principal); Z88.6 Allergy status to analgesic agent; Z88.5 Allergy status to narcotic agent; Z88.1 Allergy status to other antibiotic agents; Z79.899 Other long term (current) drug therapy
CPT/HCPCS: 36415; 80048; 84703; 85025; 99283; J1170

== ENCOUNTER 2024-03-26 07:38 | Emergency (ER) | payer MEDICAID ==
[~2024-03-26] VITALS: Ht 167.6 cm; Wt 68.0 kg
[2024-03-26 08:04] VITALS: TEMP 98.4; O2SAT 99
[2024-03-26] MEDS ORDERED: SODIUM CHLORIDE 0.9% 1,000 ML IV ONE (08:30)
[2024-03-26] MEDS: SODIUM CHLORIDE 0.9% 1,000 ML IV ONE (08:57)
[2024-03-26 09:00] LABS: CHLORIDE 109 mEq/L (98-107); POTASSIUM 3.8 mEq/L (3.5-5.1); SODIUM 140 mEq/L (136-145)
[2024-03-26 09:01] LABS: CARBON DIOXIDE 21 mEq/L (21-32)
[2024-03-26 09:06] LABS: CREATININE 0.9 mg/dL (0.6-1.0); GLUCOSE 92 mg/dL (70-105); UREA NITROGEN BLOOD 9 mg/dL (9-23)
[2024-03-26] MEDS: MORPHINE SULFATE 4 MG/ML INJ (FOR IV/IM USE) IV NR ×2 (09:15→15:25)
[2024-03-26 09:47] LABS: HEMATOCRIT. 24.9 % (36.0-48.0); HEMOGLOBIN. 8.2 g/dL (12.0-16.0); MEAN CORPUSCULAR HEMOGLOBIN 25.3 pg (28.0-32.0); MEAN CORPUSCULAR HGB CONC 33.2 g/dL (31.0-37.0); MEAN CORPUSCULAR VOLUME 76.4 fL (81.0-99.0); MEAN PLATELET VOLUME 8.5 fl (7.4-10.4); PLATELET 375 x1000/uL (130-400); RED BLOOD CELL COUNT 3.25 mill/uL (4.2-5.4); RED CELL DISTRIBUTION WIDTH 18.5 % (11.6-14.6); WHITE BLOOD COUNT 13.8 x1000/uL (4.5-11.0)
[2024-03-26 09:54] LABS: DIFFERENTIAL COMMENT 1
[2024-03-26] MEDS: MORPHINE SULFATE 4 MG/ML INJ (FOR IV/IM USE) IV ONE (10:43)
[2024-03-26] MEDS ORDERED: MORPHINE SULFATE 4 MG/ML INJ (FOR IV/IM USE) IV ONE (13:00)
[2024-03-26] MEDS ORDERED: MAGNESIUM/ALUMINUM HYDROXIDE/SIMETHICONE 30ML UDC PO PRN (14:00)
[2024-03-26] MEDS ORDERED: DOCUSATE SODIUM 100MG CAPSULE PO PRN (14:00)
[2024-03-26] MEDS ORDERED: ACETAMINOPHEN 325MG TABLET PO PRN ×2 (14:00)
[2024-03-26] MEDS ORDERED: KETOROLAC 15MG/ML VIAL IV PRN (14:00)
[2024-03-26] MEDS ORDERED: ONDANSETRON HCL 4MG/2ML INJ IV PRN (14:00)
[2024-03-26] MEDS ORDERED: MORPHINE SULFATE 2 MG/ML INJ (NOT FOR IM USE) IV PRN (14:00)
[2024-03-26] MEDS ORDERED: CLONIDINE 0.1MG TABLET PO PRN (14:00)
[2024-03-26] MEDS ORDERED: GUAIFENESIN 200MG/10ML SUGAR FREE UDC PO PRN (14:00)
[2024-03-26] MEDS ORDERED: IPRATROPIUM/ALBUTEROL 0.5-3(2.5)MG/3ML NEB HHN PRN (14:00)
[2024-03-26 14:56] LABS: ANISOCYTOSIS 2+; MICROCYTOSIS 1+; PLATELET ESTIMATE NORMAL; TARGET CELLS 2+
[2024-03-26 14:57] LABS: SICKLE CELLS 1+
[2024-03-26] MEDS ORDERED: HYDROXYUREA 500MG CAPSULE PO SCH (15:00)
[2024-03-26 15:24] LABS: ERYTHROCYTE SEDIMENTATION RATE 14 mm/hr (0-20)
[2024-03-26 15:25] VITALS: BP 103/70; PULSE 83; RESP 16
[2024-03-26] MEDS: LACTATED RINGERS 1,000 ML IV SCH (15:37)
[2024-03-26] MEDS ORDERED: ENOXAPARIN 40MG/0.4ML SYR SUBCUT SCH (16:00)
[2024-03-26] MEDS ORDERED: FAMOTIDINE 20MG TABLET PO SCH (21:00)
[2024-03-27] MEDS ORDERED: FOLIC ACID 1MG TABLET PO SCH (09:00)
== END 2024-03-26 17:04 | disposition left against medical advice (07) ==
LOC: ER 07:38 → EDBEDREQ 13:04 → ER 17:04
DX: M79.10 Myalgia, unspecified site (principal); D57.00 Hb-SS disease with crisis, unspecified; Z88.1 Allergy status to other antibiotic agents; Z79.64 Long term (current) use of myelosuppressive agent; Z88.2 Allergy status to sulfonamides; Z79.899 Other long term (current) drug therapy
CPT/HCPCS: 99285; 96361; 96374; 71045; 80048; 81025; 85025; 85651; 84145; 93005; 96376; 36415; J2270; J7030

== ENCOUNTER 2024-04-10 10:31 | Emergency (ER) | payer MEDICAID ==
[~2024-04-10] VITALS: Ht 167.6 cm; Wt 66.0 kg
[2024-04-10 10:37] VITALS: BP 116/76; PULSE 92; RESP 18; TEMP 98.3; O2SAT 97
[2024-04-10] MEDS: SODIUM CHLORIDE 0.9% 1,000 ML IV ONE (11:00)
[2024-04-10] MEDS: MORPHINE SULFATE 4 MG/ML INJ (FOR IV/IM USE) IV ONE (11:00)
[2024-04-10 11:34] LABS: CARBON DIOXIDE 24 mEq/L (21-32); CHLORIDE 108 mEq/L (98-107); SODIUM 138 mEq/L (136-145)
[2024-04-10 11:35] LABS: CALCIUM 10.1 mg/dL (8.7-10.4)
[2024-04-10 11:36] LABS: HEMATOCRIT. 24.1 % (36.0-48.0); HEMOGLOBIN. 8.1 g/dL (12.0-16.0); MEAN CORPUSCULAR HEMOGLOBIN 25.9 pg (28.0-32.0); MEAN CORPUSCULAR HGB CONC 33.6 g/dL (31.0-37.0); MEAN CORPUSCULAR VOLUME 77.2 fL (81.0-99.0); MEAN PLATELET VOLUME 8.6 fl (7.4-10.4); PLATELET 354 x1000/uL (130-400); RED BLOOD CELL COUNT 3.13 mill/uL (4.2-5.4); RED CELL DISTRIBUTION WIDTH 22.4 % (11.6-14.6)
[2024-04-10 11:37] LABS: DIFFERENTIAL COMMENT 1; INR 1.1; PROTHROMBIN TIME 11.9 sec (9.6-11.0)
[2024-04-10 11:39] LABS: CREATININE 0.6 mg/dL (0.6-1.0)
[2024-04-10 11:40] LABS: GLUCOSE 101 mg/dL (70-105); UREA NITROGEN BLOOD 8 mg/dL (9-23)
[2024-04-10 11:56] LABS: HCG SCREEN NEGATIVE
[2024-04-10 12:05] LABS: TROPONIN I HIGH SENSITIVITY < 4 ng/L (3.0-34)
[2024-04-10 13:05] LABS: NUCLEATED RED BLOOD CELLS 4 /100 WBC
[2024-04-10 13:06] LABS: ANISOCYTOSIS 3+; HYPOCHROMASIA 3+; MICROCYTOSIS 1+; SICKLE CELLS 1+; TARGET CELLS 1+
[2024-04-10 13:07] LABS: PLATELET ESTIMATE NORMAL
[2024-04-10] MEDS: OXYCODONE HCL 10MG TABLET SR 12HR PO ONE (16:45)
[2024-04-10] MEDS: KETOROLAC 30MG/ML VIAL IV ONE (17:15)
[2024-04-10] MEDS: KETOROLAC 30MG/ML VIAL IM ONE (17:30)
== END 2024-04-10 20:11 | disposition left against medical advice (07) ==
LOC: ER 10:31 → EDBEDREQ 17:05 → EDBEDREQTM 17:05 → CANBEDREQ 18:35 → ER 20:11
DX: D57.00 Hb-SS disease with crisis, unspecified (principal); Z88.2 Allergy status to sulfonamides; Z88.1 Allergy status to other antibiotic agents; Z79.899 Other long term (current) drug therapy
CPT/HCPCS: 80048; 84703; 85025; 85044; 85610; 86850; 86900; 86901; 84484; 36415; 71045; 93005; 96360; 96361; 96372; 99285; J1885; Z7610 ×2; J7030; J2270

== ENCOUNTER 2024-04-22 08:17 | Emergency (ER) | payer MEDICAID ==
[~2024-04-22] VITALS: Ht 167.6 cm; Wt 73.0 kg
[2024-04-22 08:22] VITALS: O2SAT 97
[2024-04-22 08:31] VITALS: BP 116/74; PULSE 99; TEMP 98.5; O2SAT 98
[2024-04-22 09:39] LABS: CHLORIDE 111 mEq/L (98-107); SODIUM 141 mEq/L (136-145)
[2024-04-22 09:40] LABS: CALCIUM 9.9 mg/dL (8.7-10.4); CARBON DIOXIDE 21 mEq/L (21-32)
[2024-04-22 09:45] LABS: CREATININE 0.7 mg/dL (0.6-1.0); GLUCOSE 107 mg/dL (70-105); UREA NITROGEN BLOOD 9 mg/dL (9-23)
[2024-04-22 09:54] LABS: HEMATOCRIT. 26.5 % (36.0-48.0); HEMOGLOBIN. 8.6 g/dL (12.0-16.0); MEAN CORPUSCULAR HEMOGLOBIN 25.9 pg (28.0-32.0); MEAN CORPUSCULAR HGB CONC 32.5 g/dL (31.0-37.0); MEAN CORPUSCULAR VOLUME 79.5 fL (81.0-99.0); MEAN PLATELET VOLUME 7.8 fl (7.4-10.4); PLATELET 447 x1000/uL (130-400); RED BLOOD CELL COUNT 3.33 mill/uL (4.2-5.4); RED CELL DISTRIBUTION WIDTH 21.3 % (11.6-14.6); WHITE BLOOD COUNT 13.5 x1000/uL (4.5-11.0)
[2024-04-22 09:58] LABS: DIFFERENTIAL COMMENT 1
[2024-04-22] MEDS ORDERED: MORPHINE SULFATE 4 MG/ML INJ (FOR IV/IM USE) IM ONE (10:15)
[2024-04-22 10:40] LABS: CLARITY URINE CLEAR (CLEAR); COLOR URINE YELLOW (YELLOW); GLUCOSE URINE NEGATIVE (NEGATIVE); KETONES URINE NEGATIVE (NEGATIVE); LEUKOCYTE ESTERASE URINE 2+ (NEGATIVE); NITRITE URINE NEGATIVE (NEGATIVE); OCCULT BLOOD URINE NEGATIVE (NEGATIVE); PROTEIN URINE NEGATIVE (NEGATIVE); SPECIFIC GRAVITY URINE 1.013 (1.005-1.030)
[2024-04-22 10:50] LABS: NUCLEATED RED BLOOD CELLS 5 /100 WBC
[2024-04-22 10:51] LABS: PLATELET ESTIMATE INCREASED; SICKLE CELLS 1+
[2024-04-22 10:53] LABS: ANISOCYTOSIS 3+
[2024-04-22 10:56] LABS: TARGET CELLS 1+
[2024-04-22 11:01] LABS: SQUAMOUS EPITHELIAL CELL URINE 1+ /lpf (RARE/1+)
[2024-04-22 11:02] LABS: RBC URINE 0-2 /hpf (0-2)
[2024-04-22 11:03] LABS: BACTERIA URINE 2+; WBC URINE 50-100 /hpf (0-2)
[2024-04-22 13:29] VITALS: RESP 19
[2024-04-22] MEDS: MORPHINE SULFATE 4 MG/ML INJ (FOR IV/IM USE) IM NR (13:29)
[2024-04-22] MEDS ORDERED: CEPH500T MT (15:45)
[2024-04-22] MEDS: MORPHINE SULFATE 4 MG/ML INJ (FOR IV/IM USE) IM ONE (15:53)
== END 2024-04-22 16:18 | disposition home or self-care (01) ==
LOC: ER 08:17
DX: D57.00 Hb-SS disease with crisis, unspecified (principal); Z88.1 Allergy status to other antibiotic agents; Z88.2 Allergy status to sulfonamides; Z88.5 Allergy status to narcotic agent; Z79.899 Other long term (current) drug therapy
CPT/HCPCS: 80048; 81003; 81025; 85025; 85044; 87086; 36415; 96372; 99284; J2270; Z7610 ×2; C1893

== ENCOUNTER 2024-07-07 07:51 | Emergency (ER) | payer MEDICAID ==
[~2024-07-07] VITALS: Ht 167.6 cm; Wt 72.0 kg
[~2024-07-07 07:51] MED LIST changes: +CEPH500T MT
[2024-07-07 08:01] VITALS: O2SAT 99
[2024-07-07] MEDS: HYDROMORPHONE HCL 2MG TABLET PO ONE (13:20)
[2024-07-07 13:32] LABS: BASOPHILS % 3.2 % (0.0-2.0); DIFFERENTIAL COMMENT 0; EOSINOPHILS % 0.4 % (0.0-5.0); HEMATOCRIT. 27.3 % (36.0-48.0); HEMOGLOBIN. 8.8 g/dL (12.0-16.0); LYMPHOCYTES % 13.9 % (20.0-50.0); MEAN CORPUSCULAR HEMOGLOBIN 25.4 pg (28.0-32.0); MEAN CORPUSCULAR HGB CONC 32.2 g/dL (31.0-37.0); MEAN CORPUSCULAR VOLUME 78.8 fL (81.0-99.0); MEAN PLATELET VOLUME 8.3 fl (7.4-10.4); NEUTROPHILS % 72.5 % (40.0-76.0); PLATELET 337 x1000/uL (130-400); RED BLOOD CELL COUNT 3.46 mill/uL (4.2-5.4); RED CELL DISTRIBUTION WIDTH 18.5 % (11.6-14.6)
[2024-07-07 13:41] LABS: INR 1.1; PROTHROMBIN TIME 11.7 sec (9.6-11.0)
[2024-07-07 13:43] LABS: HCG SCREEN NEGATIVE
[2024-07-07 14:10] LABS: CARBON DIOXIDE 20 mEq/L (21-32); CHLORIDE 108 mEq/L (98-107); POTASSIUM 3.9 mEq/L (3.5-5.1); SODIUM 141 mEq/L (136-145)
[2024-07-07 14:15] LABS: CREATININE 0.7 mg/dL (0.6-1.0)
[2024-07-07 14:16] LABS: GLUCOSE 104 mg/dL (70-105); UREA NITROGEN BLOOD 9 mg/dL (9-23)
[2024-07-07] MEDS ORDERED: OXYC20TA41 MT (14:28)
[2024-07-07 14:42] VITALS: TEMP 36.83628; O2SAT 99
[2024-07-07 14:44] VITALS: BP 119/77; PULSE 87; RESP 18
[2024-07-07] MEDS: MORPHINE SULFATE 4 MG/ML INJ (FOR IV/IM USE) IM ONE (14:44)
== END 2024-07-07 14:47 | disposition home or self-care (01) ==
LOC: ER 07:51
DX: D57.00 Hb-SS disease with crisis, unspecified (principal); Z79.64 Long term (current) use of myelosuppressive agent; Z88.1 Allergy status to other antibiotic agents; Z88.2 Allergy status to sulfonamides; Z79.899 Other long term (current) drug therapy
CPT/HCPCS: 99284; 71045; 80048; 84703; 83690; 85025; 85044; 85610; 86850; 86900; 86901; 36415; 96372; J2270

== ENCOUNTER 2024-07-30 07:59 | Emergency (ER) | payer MEDICAID ==
[~2024-07-30] VITALS: Ht 165.1 cm; Wt 65.0 kg
[2024-07-30 08:24] VITALS: O2SAT 98
[2024-07-30] MEDS: MORPHINE SULFATE 4 MG/ML INJ (FOR IV/IM USE) IV ONE ×2 (10:18→12:59)
[2024-07-30 10:29] LABS: HEMATOCRIT. 27.7 % (36.0-48.0); HEMOGLOBIN. 9.1 g/dL (12.0-16.0); MEAN CORPUSCULAR HGB CONC 32.8 g/dL (31.0-37.0); MEAN CORPUSCULAR VOLUME 79.3 fL (81.0-99.0); MEAN PLATELET VOLUME 8.2 fl (7.4-10.4); PLATELET 398 x1000/uL (130-400); RED CELL DISTRIBUTION WIDTH 19.8 % (11.6-14.6)
[2024-07-30 10:32] LABS: CHLORIDE 107 mEq/L (98-107); POTASSIUM 3.9 mEq/L (3.5-5.1); SODIUM 139 mEq/L (136-145)
[2024-07-30 10:34] LABS: CALCIUM 9.9 mg/dL (8.7-10.4); CARBON DIOXIDE 20 mEq/L (21-32)
[2024-07-30 10:39] LABS: CREATININE 0.8 mg/dL (0.6-1.0); GLUCOSE 97 mg/dL (70-105); UREA NITROGEN BLOOD 8 mg/dL (9-23)
[2024-07-30 10:41] LABS: ALANINE AMINOTRANSFERASE 33 IU/L (10-49); ALBUMIN 4.8 g/dL (3.2-4.8); ASPARTATE AMINOTRANSFERASE 25 IU/L (<34); BILIRUBIN DIRECT 0.6 mg/dL (<=3.0); BILIRUBIN TOTAL 2.3 mg/dL (0.1-1.0); HCG SCREEN NEGATIVE; PROTEIN TOTAL 8.9 g/dL (6.0-8.3)
[2024-07-30 10:42] LABS: TROPONIN I HIGH SENSITIVITY < 4 ng/L (3.0-34)
[2024-07-30 11:27] LABS: DIFFERENTIAL COMMENT 1
[2024-07-30 12:57] LABS: NUCLEATED RED BLOOD CELLS 1 /100 WBC; PLATELET ESTIMATE NORMAL
[2024-07-30 13:05] LABS: ANISOCYTOSIS 3+; SICKLE CELLS FEW
[2024-07-30 13:06] LABS: TARGET CELLS FEW
[2024-07-30 14:08] VITALS: BP 109/68; PULSE 88; RESP 18; TEMP 36.9; O2SAT 99
== END 2024-07-30 14:10 | disposition home or self-care (01) ==
LOC: ER 07:59
DX: D57.00 Hb-SS disease with crisis, unspecified (principal); Z79.64 Long term (current) use of myelosuppressive agent; Z88.1 Allergy status to other antibiotic agents; Z88.2 Allergy status to sulfonamides; Z20.822 Contact with and (suspected) exposure to COVID-19
CPT/HCPCS: 99291; 96374; 71045; 87426; 80076; 80048; 81025; 84703; 83880; 85025; 85044; 84484; 87804 ×2; 36415; 93005; 96376; J2270

== ENCOUNTER 2024-08-20 07:43 | Emergency (ER) | payer MEDICAID ==
[~2024-08-20] VITALS: Ht 167.6 cm; Wt 68.0 kg
[2024-08-20 07:48] VITALS: O2SAT 98
[2024-08-20 08:03] VITALS: TEMP 36.7; O2SAT 97
[2024-08-20 09:02] LABS: CHLORIDE 109 mEq/L (98-107); SODIUM 143 mEq/L (136-145)
[2024-08-20 09:04] LABS: CALCIUM 9.6 mg/dL (8.7-10.4); CARBON DIOXIDE 23 mEq/L (21-32)
[2024-08-20 09:09] LABS: CREATININE 0.8 mg/dL (0.6-1.0); GLUCOSE 94 mg/dL (70-105); UREA NITROGEN BLOOD 9 mg/dL (9-23)
[2024-08-20 09:11] LABS: ALANINE AMINOTRANSFERASE 22 IU/L (10-49); ALBUMIN 4.4 g/dL (3.2-4.8); ASPARTATE AMINOTRANSFERASE 26 IU/L (<34); BASOPHILS % 1.9 % (0.0-2.0); BILIRUBIN DIRECT 0.7 mg/dL (<=3.0); EOSINOPHILS % 0.9 % (0.0-5.0); HEMATOCRIT. 26.6 % (36.0-48.0); HEMOGLOBIN. 8.5 g/dL (12.0-16.0); LYMPHOCYTES % 10.9 % (20.0-50.0); MEAN CORPUSCULAR HEMOGLOBIN 25.1 pg (28.0-32.0); MEAN CORPUSCULAR HGB CONC 32.1 g/dL (31.0-37.0); MEAN CORPUSCULAR VOLUME 78.4 fL (81.0-99.0); MEAN PLATELET VOLUME 8.5 fl (7.4-10.4); MONOCYTES % 10.7 % (2.0-8.0); NEUTROPHILS % 75.6 % (40.0-76.0); PLATELET 372 x1000/uL (130-400); RED BLOOD CELL COUNT 3.39 mill/uL (4.2-5.4); RED CELL DISTRIBUTION WIDTH 18.8 % (11.6-14.6); WHITE BLOOD COUNT 9.4 x1000/uL (4.5-11.0)
[2024-08-20 09:12] LABS: BILIRUBIN TOTAL 2.7 mg/dL (0.1-1.0); PROTEIN TOTAL 8.2 g/dL (6.0-8.3)
[2024-08-20 09:31] LABS: DIFFERENTIAL COMMENT 1
[2024-08-20 09:36] LABS: HCG SCREEN NEGATIVE
[2024-08-20 09:44] LABS: TROPONIN I HIGH SENSITIVITY < 4 ng/L (3.0-34)
[2024-08-20] MEDS: SODIUM CHLORIDE 0.9% 1,000 ML IV ONE (10:17)
[2024-08-20 10:18] VITALS: BP 113/70; PULSE 90; RESP 16
[2024-08-20] MEDS: HYDROMORPHONE HCL/PF 2MG/ML INJ IV ONE (10:18)
== END 2024-08-20 13:28 | disposition home or self-care (01) ==
LOC: ER 07:43
DX: D57.00 Hb-SS disease with crisis, unspecified (principal); Z79.64 Long term (current) use of myelosuppressive agent; Z88.1 Allergy status to other antibiotic agents; Z88.2 Allergy status to sulfonamides
CPT/HCPCS: 99285; 96374; 71045; 80076; 80048; 84703; 83690; 85025; 85044; 84484; 36415; 93005; J1171; J7030

== ENCOUNTER 2024-11-05 08:15 | Emergency (ER) | payer MEDICAID ==
[~2024-11-05] VITALS: Ht 170.2 cm; Wt 69.0 kg
[2024-11-05 08:17] VITALS: O2SAT 99
[2024-11-05] MEDS: MORPHINE SULFATE 4 MG/ML INJ (FOR IV/IM USE) IV ONE (08:47)
[2024-11-05] MEDS: SODIUM CHLORIDE 0.9% 1,000 ML IV ONE (08:47)
[2024-11-05 08:50] VITALS: BP 126/76; PULSE 95; RESP 20; TEMP 36.8
[2024-11-05 09:06] LABS: CHLORIDE 108 mEq/L (98-107); POTASSIUM 3.4 mEq/L (3.5-5.1); SODIUM 140 mEq/L (136-145)
[2024-11-05 09:07] LABS: CALCIUM 9.8 mg/dL (8.7-10.4); CARBON DIOXIDE 23 mEq/L (21-32)
[2024-11-05 09:11] LABS: UREA NITROGEN BLOOD 10 mg/dL (9-23)
[2024-11-05 09:12] LABS: CREATININE 0.7 mg/dL (0.6-1.0); GLUCOSE 115 mg/dL (70-105)
[2024-11-05 09:14] LABS: ALANINE AMINOTRANSFERASE 17 IU/L (10-49); ALBUMIN 4.5 g/dL (3.2-4.8); ASPARTATE AMINOTRANSFERASE 30 IU/L (<34); BILIRUBIN DIRECT 0.8 mg/dL (<=3.0); HEMATOCRIT. 23.7 % (36.0-48.0); HEMOGLOBIN. 7.9 g/dL (12.0-16.0); LACTATE DEHYDROGENASE 414 IU/L (120-246); MEAN CORPUSCULAR HEMOGLOBIN 25.6 pg (28.0-32.0); MEAN CORPUSCULAR HGB CONC 33.4 g/dL (31.0-37.0); MEAN CORPUSCULAR VOLUME 76.5 fL (81.0-99.0); MEAN PLATELET VOLUME 8.5 fl (7.4-10.4); PLATELET 366 x1000/uL (130-400); RED CELL DISTRIBUTION WIDTH 18.1 % (11.6-14.6); WHITE BLOOD COUNT 11.9 x1000/uL (4.5-11.0)
[2024-11-05 09:15] LABS: BILIRUBIN TOTAL 2.9 mg/dL (0.1-1.0); DIFFERENTIAL COMMENT 1; PROTEIN TOTAL 8.5 g/dL (6.0-8.3)
[2024-11-05 09:18] LABS: HCG SCREEN NEGATIVE; TROPONIN I HIGH SENSITIVITY < 4 ng/L (3.0-34)
[2024-11-05 09:36] LABS: INR 1.1; PROTHROMBIN TIME 11.9 sec (9.6-11.0)
[2024-11-05 09:53] LABS: NUCLEATED RED BLOOD CELLS 1 /100 WBC
[2024-11-05 09:54] LABS: PLATELET ESTIMATE NORMAL
[2024-11-05 09:55] LABS: ANISOCYTOSIS 2+; MICROCYTOSIS 1+; SICKLE CELLS 1+; TARGET CELLS 1+
== END 2024-11-05 11:40 | disposition left against medical advice (07) ==
LOC: ER 08:15
DX: R07.89 Other chest pain (principal); R11.2 Nausea with vomiting, unspecified; Z53.21 Procedure and treatment not carried out due to patient leaving prior to being seen by health care provider; Z88.1 Allergy status to other antibiotic agents; Z88.2 Allergy status to sulfonamides; Z79.899 Other long term (current) drug therapy
CPT/HCPCS: 99291; 96360; 80076; 80048; 84703; 83880; 83615; 83690; 85025; 85044; 85610; 84484; 36415; 71045; 93005; J7030

== ENCOUNTER 2025-02-04 05:22 | Emergency (ER) | payer MEDICAID ==
[~2025-02-04] VITALS: Ht 170.2 cm; Wt 71.2 kg
[2025-02-04 05:29] VITALS: O2SAT 98
[2025-02-04] MEDS ORDERED: MORPHINE SULFATE 2 MG/ML INJ (NOT FOR IM USE) IV ONE (05:45)
[2025-02-04 07:27] LABS: BASOPHILS % 0.9 % (0.0-2.0); EOSINOPHILS % 4.1 % (0.0-5.0); HEMATOCRIT. 23.4 % (36.0-48.0); HEMOGLOBIN. 7.9 g/dL (12.0-16.0); LYMPHOCYTES % 31.9 % (20.0-50.0); MEAN PLATELET VOLUME 7.7 fl (7.4-10.4); MONOCYTES % 9.7 % (2.0-8.0); NEUTROPHILS % 53.4 % (40.0-76.0); PLATELET 409 x1000/uL (130-400); RED BLOOD CELL COUNT 3.05 mill/uL (4.2-5.4); RED CELL DISTRIBUTION WIDTH 20.3 % (11.6-14.6)
[2025-02-04 07:40] LABS: CREATININE 0.6 mg/dL (0.6-1.0); HCG SCREEN NEGATIVE; INR 1.1
[2025-02-04 07:41] LABS: ETHANOL BLOOD < 10 mg/dL (<10); UREA NITROGEN BLOOD 7 mg/dL (9-23)
[2025-02-04 07:42] LABS: ASPARTATE AMINOTRANSFERASE 33 IU/L (<34)
[2025-02-04 07:43] LABS: BILIRUBIN DIRECT 0.5 mg/dL (<=3.0); BILIRUBIN TOTAL 1.3 mg/dL (0.1-1.0); PROTEIN TOTAL 7.0 g/dL (6.0-8.3)
[2025-02-04] MEDS: MORPHINE SULFATE 4 MG/ML INJ (FOR IV/IM USE) IV NR (08:07)
[2025-02-04] MEDS: LACTATED RINGERS 1,000 ML IV SCH (08:08)
[2025-02-04 08:40] LABS: SICKLE CELL SCREEN POSITIVE (NEGATIVE)
[2025-02-04 08:50] VITALS: BP 117/79; PULSE 69; RESP 16; TEMP 36.8; O2SAT 99
== END 2025-02-04 09:15 | disposition left against medical advice (07) ==
LOC: ER 05:22 → EDBEDREQTM 07:46 → EDBEDREQSVC 07:46 → EDBEDREQ 07:46 → ENRESERV 08:31 → CANRESERV 08:31 → CANBEDREQ 09:11 → ER 09:15
DX: D57.00 Hb-SS disease with crisis, unspecified (principal); Z88.1 Allergy status to other antibiotic agents; Z88.2 Allergy status to sulfonamides; Z79.899 Other long term (current) drug therapy; Z98.890 Other specified postprocedural states
CPT/HCPCS: 80076; 80048; 80320; 84703; 85660; 85025; 85044; 85610; 85730; 86850; 86870; 86900; 86901; 36415; 96361; 96374; 99291; J2270; G0480

== ENCOUNTER 2025-04-26 17:45 | Emergency (ER) | payer MEDICAID ==
[~2025-04-26] VITALS: Ht 162.6 cm; Wt 70.6 kg
[2025-04-26 17:47] VITALS: O2SAT 99
[2025-04-26 18:49] LABS: BASOPHILS % 0.5 % (0.0-2.0); EOSINOPHILS % 0.4 % (0.0-5.0); HEMATOCRIT. 22.6 % (36.0-48.0); HEMOGLOBIN. 7.4 g/dL (12.0-16.0); LYMPHOCYTES % 21.8 % (20.0-50.0); MEAN PLATELET VOLUME 8.4 fl (7.4-10.4); MONOCYTES % 10.1 % (2.0-8.0); NEUTROPHILS % 67.2 % (40.0-76.0); PLATELET 307 x1000/uL (130-400); RED BLOOD CELL COUNT 2.89 mill/uL (4.2-5.4); RED CELL DISTRIBUTION WIDTH 18.5 % (11.6-14.6)
[2025-04-26] MEDS: LACTATED RINGERS 1,000 ML IV ONE (19:02)
[2025-04-26] MEDS: ASPIRIN 81MG TABLET PO ONE (19:02)
[2025-04-26 19:11] LABS: CREATININE 0.7 mg/dL (0.6-1.0); UREA NITROGEN BLOOD 9 mg/dL (9-23)
[2025-04-26 19:12] LABS: HCG SCREEN NEGATIVE
[2025-04-26 19:13] LABS: ASPARTATE AMINOTRANSFERASE 21 IU/L (<34); BILIRUBIN DIRECT 0.6 mg/dL (<=3.0); BILIRUBIN TOTAL 2.1 mg/dL (0.1-1.0); PROTEIN TOTAL 7.7 g/dL (6.0-8.3)
[2025-04-26 19:17] LABS: INR 1.1
[2025-04-26 19:36] LABS: LACTATE DEHYDROGENASE 280 IU/L (120-246)
[2025-04-26] MEDS: ONDANSETRON HCL 4MG/2ML INJ IV ONE (20:04)
[2025-04-26] MEDS: HYDROMORPHONE HCL/PF 2MG/ML INJ IV ONE ×2 (20:09→21:40)
[2025-04-26 20:55] LABS: CLARITY URINE CLEAR (CLEAR); COLOR URINE YELLOW (YELLOW); GLUCOSE URINE NEGATIVE (NEGATIVE); KETONES URINE NEGATIVE (NEGATIVE); LEUKOCYTE ESTERASE URINE NEGATIVE (NEGATIVE); NITRITE URINE NEGATIVE (NEGATIVE); OCCULT BLOOD URINE NEGATIVE (NEGATIVE); PH URINE 6.5 (4.5-8.0); PROTEIN URINE NEGATIVE (NEGATIVE); SPECIFIC GRAVITY URINE 1.052 (1.005-1.030); UROBILINOGEN URINE 1.0 E.U./dL (0.2-1.0)
[2025-04-26 21:07] LABS: *AMPHETAMINES SCREEN URINE NEGATIVE (NEGATIVE); *BARBITURATES SCREEN URINE NEGATIVE (NEGATIVE); *BENZODIAZEPINES SCREEN URINE NEGATIVE (NEGATIVE); *COCAINE SCREEN URINE NEGATIVE (NEGATIVE); CANNABINOID URINE SCREEN NEGATIVE (NEGATIVE); ECSTASY MDMA SCREEN URINE NEGATIVE (NEGATIVE); METHADONE URINE SCREEN NEGATIVE (NEGATIVE); OPIATES URINE SCREEN PRESUMPTIVE POSITIVE (NEGATIVE); PHENCYCLIDINE URINE SCREEN NEGATIVE (NEGATIVE)
[2025-04-26] MEDS: SODIUM CHLORIDE 0.9% 1,000 ML IV ONE (21:45)
[2025-04-26] MEDS: IOHEXOL-350 100 ML BOTTLE ONE (23:43)
[2025-04-27] MEDS: SODIUM CHLORIDE 0.9% 1,000 ML IV ONE ×3 (01:05→07:22)
[2025-04-27] MEDS: MORPHINE SULFATE 4 MG/ML INJ (FOR IV/IM USE) IV ONE (01:31)
[2025-04-27] MEDS: HYDROMORPHONE HCL/PF 2MG/ML INJ IV ONE ×2 (06:24→08:43)
[2025-04-27 12:00] VITALS: BP 92/63; PULSE 66; RESP 18; TEMP 36.7; O2SAT 98
== END 2025-04-27 13:03 | disposition left against medical advice (07) ==
LOC: ER 17:45 → CMPBEDREQ 04-27 13:29
DX: I63.9 Cerebral infarction, unspecified (principal); D57.00 Hb-SS disease with crisis, unspecified; Z88.1 Allergy status to other antibiotic agents; Z88.2 Allergy status to sulfonamides; Z79.899 Other long term (current) drug therapy
CPT/HCPCS: 80076; 80305; 80048; 81003; 80320; 84703; 83615; 83735; 85025; 85044; 85610; 85730; 86850; 86900; 86901; 36415; 71045; 70496; 70498; 70450; 93005; 96361 ×2; 96374; 96375 ×2; 96376 ×2; 99291; Q9967; Z7610 ×2; J2405; J1171 ×2; J7120; J7030 ×2; J2270; G0480